=== PATIENT | male | born 1980 | race Caucasian/White ===

== ENCOUNTER 2023-08-03 13:14 | Observation (INO) | payer MEDICAID, SELFPAY ==
[2023-08-03 13:14] VITALS: BP 146/95; PULSE 92; RESP 16; TEMP 36.6; O2SAT 100; BMI 27.6
--- NOTE | 2023-08-03 13:29 | EX.ED.SAOD ---
HPI <Dr. Easton Nicole DO - Last Filed: 08/03/23 14:42> History of Present Illness Chief Complaint: Substance Abuse <MONI Fried - Last Filed: 08/03/23 15:00> Narrative Narrative: Patient presenting today requesting to detox. He reports that he has been using heroin and cocaine for about 10 years, he last used on Friday and generally uses about a gram of each per day. He snorts the substances and denies IV drug use. He detoxed once in the past several years ago. He denies any chronic medical conditions. He reports feeling chilled and has body aches, nausea, and abdominal cramping. PFSH <Dr. Easton Nicole DO - Last Filed: 08/03/23 14:42> COUNTS INCLUDE 234 BEDS AT THE [facility] Medical History (Updated 08/03/23 @ 14:[address] Easton iNcole DO) Depression Insomnia Home Medications NK 08/03/23 [History Last Taken Unknown] Allergy/AdvReac Type Severity Reaction Status Date / Time No Known Allergies Allergy Verified 08/03/23 13:16 Surgical History (Updated 08/03/23 @ 14:00 by Leticia Savage) History of appendectomy Social History Smoking Status: Current every day smoker tobacco type: cigarettes ROS <MONI Fried - Last Filed: 08/03/23 15:00> ROS ED Constitutional Constitutional ED: Reports chills; Denies fever(s) Cardiovascular Cardiovascular: Denies chest pain Respiratory/Chest Respiratory/Chest: Denies cough or dyspnea Gastrointestinal Gastrointestinal: Reports abdominal pain and nausea; Denies constipation, diarrhea or vomiting Genitourinary Genitourinary ED: Denies dysuria, hematuria or urinary urgency Musculoskeletal Musculoskeletal: Reports myalgias Integumentary Denies abscess or rash Neurologic Neurologic: Denies weakness EXAM <Dr. Easton Nicole DO - Last Filed: 08/03/23 14:42> Physical Exam Const Vital Signs: 08/03/23 13:14 08/03/23 14:04 Temperature 98 F Temperature Source Temporal Pulse Rate 92 82 Respiratory Rate 16 18 Blood Pressure 146/95 H 139/96 H Blood Pressure Mean 112 110 Pulse Ox 100 98 Oxygen Delivery Method Room Air Room Air <MONI Fried - Last Filed: 08/03/23 15:00> Physical Exam Const Vital Signs: 08/03/23 13:14 08/03/23 14:04 Temperature 98 F Temperature Source Temporal Pulse Rate 92 82 Respiratory Rate 16 18 Blood Pressure 146/95 H 139/96 H Blood Pressure Mean 112 110 Pulse Ox 100 98 Oxygen Delivery Method Room Air Room Air Positive well nourished, well developed and no apparent distress General Appearance ED: well developed HEENT Reports normocephalic and head/scalp atraumatic Mouth ED: Yes moist mucous membranes normal Eyes PERRL and EOMs intact bilaterally Neck full ROM and supple Chest Wall inspection of chest normal Resp normal respiratory effort and clear to auscultation bilaterally Cardio regular rate and regular rhythm GI soft to palpation, non-tender, non-distended and no masses Back/Spine normal ROM and normal to inspection Extremity normal to inspection and full ROM Neuro oriented x3, CN's II-XII intact bilaterally, moves all extremities, no focal motor deficits and no sensory deficits noted Sensorium / Orientation: awake and alert Psych mental status grossly normal and thought process normal Skin no rashes or lesions noted and no wounds MDM <Dr. Easton Nicole DO - Last Filed: 08/03/23 14:42> [facility] MDM Narrative Medical decision making narrative: Patient presenting requesting to detox from heroin and cocaine. Nontoxic-appearing. Detox labs will be obtained to include a CBC, CMP, urine drug screening, and alcohol level. He has been given ibuprofen and Zofran. I have personally performed a face to face assessment of the patient and have reviewed the VIDHYA Note. I performed a substantive portion of the visit including all aspects of the following. My perla findings include: History is [patient presents to the emergency department with complaint of needing detox from opiates and cocaine. Patient states that his last use was 2 days ago. Complains of chills and bodyaches as well as nausea. Has had some intermittent vomiting since yesterday. Denies diarrhea. Patient normally snorts his heroin and has been using about a gram a day for about 10 years.] Exam is [HEENT-PERRLA, EOMI. Cranial nerves II through XII grossly intact. TMs clear. Mucous membranes moist. No adenopathy. Patient appears agitated and shaky. Cardiovascular-regular rate and rhythm without murmur or ectopy Lungs-clear to auscultation, chest wall stable without crepitus or subcu emphysema Abdomen-normoactive bowel sounds, soft, nontender, no rebound or rigidity, no peritoneal signs. Extremities-intact ?4, normal range of motion, normal pulses, atraumatic] Medical Decison Making [patient had basic labs that were unremarkable. Chemistries and LFTs unremarkable. Toxicology screen positive for MDMA as well as cocaine. Alcohol was less than 3. Will discuss case with hospitalist to evaluate patient for admission for opiate detox.] Other additions or changes: [None] Lab Data Labs: Laboratory Results - last 24 hr 08/03/23 08/03/23 13:45 13:55 WBC 5.7 RBC 4.36 L Hgb 14.4 Hct 42.8 MCV 98.2 H MCH 33.0 H MCHC 33.6 RDW Std Deviation 47.1 H RDW Coeff of Abilio 13.1 Plt Count 233 MPV 8.5 Immature Gran % (Auto) 0.200 Neut % (Auto) 54.1 Lymph % (Auto) 30.6 Hendry % (Auto) 7.4 Eos % (Auto) 6.8 H Baso % (Auto) 0.9 Absolute Neuts (auto) 3.1 Absolute Lymphs (auto) 1.75 Nucleated RBC % 0 Sodium 132 L Potassium 3.9 Chloride 102 Carbon Dioxide 29.0 Anion Gap 1 L BUN 17 Creatinine 0.66 L Estim Creat Clear Calc 153.71 Est GFR (MDRD) Af Amer 169 Est GFR (MDRD) Non-Af 140 BUN/Creatinine Ratio 25.8 H Glucose 109 H Calcium 9.4 Total Bilirubin 0.30 AST 16 ALT 21 Alkaline Phosphatase 74 Total Protein 8.3 H Albumin 4.2 Globulin 4.1 Albumin/Globulin Ratio 1.0 Urine Opiates Screen NEGATIVE Urine Methadone Screen NEGATIVE Ur Barbiturates Screen NEGATIVE Ur Phencyclidine Scrn NEGATIVE Ur Amphetamines Screen NEGATIVE MDMA (Ecstasy) Screen POSITIVE H U Benzodiazepines Scrn NEGATIVE Urine Cocaine Screen POSITIVE H U Cannabinoids Screen NEGATIVE Ur Drug Screen Comment Ethyl Alcohol < 3.0 <MONI Fried - Last Filed: 08/03/23 15:00> MDM MDM Narrative Medical decision making narrative: Patient presenting requesting to detox from heroin and cocaine. Nontoxic-appearing. Detox labs will be obtained to include a CBC, CMP, urine drug screening, and alcohol level. He has been given ibuprofen and Zofran. Toxicology screen is positive for MDMA and cocaine, sodium slightly low at 132. I spoke with the hospitalist, he will be admitted in stable condition. I have personally performed a face to face assessment of the patient and have reviewed the VIDHYA Note. I performed a substantive portion of the visit including all aspects of the following. My perla findings include: History is [patient presents to the emergency department with complaint of needing detox from opiates and cocaine. Patient states that his last use was 2 days ago. Complains of chills and bodyaches as well as nausea. Has had some intermittent vomiting since yesterday. Denies diarrhea. Patient normally snorts his heroin and has been using about a gram a day for about 10 years.] Exam is [NICOLAS MCCRAYMI. Cranial nerves II through XII grossly intact. TMs clear. Mucous membranes moist. No adenopathy. Patient appears agitated and shaky. Cardiovascular-regular rate and rhythm without murmur or ectopy Lungs-clear to auscultation, chest wall stable without crepitus or subcu emphysema Abdomen-normoactive bowel sounds, soft, nontender, no rebound or rigidity, no peritoneal signs. Extremities-intact ?4, normal range of motion, normal pulses, atraumatic] Medical Decison Making [patient had basic labs that were unremarkable. Chemistries and LFTs unremarkable. Toxicology screen positive for MDMA as well as cocaine. Alcohol was less than 3. Will discuss case with hospitalist to evaluate patient for admission for opiate detox.] Other additions or changes: [None] Lab Data Attestation: I reviewed the patient's lab results. Labs: Laboratory Results - last 24 hr 08/03/23 08/03/23 13:45 13:55 WBC 5.7 RBC 4.36 L Hgb 14.4 Hct 42.8 MCV 98.2 H MCH 33.0 H MCHC 33.6 RDW Std Deviation 47.1 H RDW Coeff of Abilio 13.1 Plt Count 233 MPV 8.5 Immature Gran % (Auto) 0.200 Neut % (Auto) 54.1 Lymph % (Auto) 30.6 Hendry % (Auto) 7.4 Eos % (Auto) 6.8 H Baso % (Auto) 0.9 Absolute Neuts (auto) 3.1 Absolute Lymphs (auto) 1.75 Nucleated RBC % 0 Sodium 132 L Potassium 3.9 Chloride 102 Carbon Dioxide 29.0 Anion Gap 1 L BUN 17 Creatinine 0.66 L Estim Creat Clear Calc 153.71 Est GFR (MDRD) Af Amer 169 Est GFR (MDRD) Non-Af 140 BUN/Creatinine Ratio 25.8 H Glucose 109 H Calcium 9.4 Total Bilirubin 0.30 AST 16 ALT 21 Alkaline Phosphatase 74 Total Protein 8.3 H Albumin 4.2 Globulin 4.1 Albumin/Globulin Ratio 1.0 Urine Opiates Screen NEGATIVE Urine Methadone Screen NEGATIVE Ur Barbiturates Screen NEGATIVE Ur Phencyclidine Scrn NEGATIVE Ur Amphetamines Screen NEGATIVE MDMA (Ecstasy) Screen POSITIVE H U Benzodiazepines Scrn NEGATIVE Urine Cocaine Screen POSITIVE H U Cannabinoids Screen NEGATIVE Ur Drug Screen Comment Ethyl Alcohol < 3.0 Discharge Plan Dx/Rx/DC Orders Clinical Impression: Opiate withdrawal, Opiate abuse, continuous, Cocaine use Disposition Disposition: Acute Care Hospital [facility]
[2023-08-03] MEDS: Ibuprofen 600 MG Tablet PO (13:50)
[2023-08-03 14:01] LABS: Absolute Lymphocyte Count 1.75 X10^3/uL (0.83-4.51); Absolute Neutrophil Count 3.1 X10^3/uL (2.0-7.7); Basophil# 0.05 X10^3/uL; Basophil% 0.9 % (0-1); Eosinophil# 0.39 X10^3/uL; Eosinophils% 6.8 % (0-5); Hematocrit 42.8 % (40-54); Hemoglobin 14.4 g/dL (13.0-16.5); Lymphocyte # 1.75 X10^3/ul (0.83-4.51); Lymphocyte % 30.6 % (19-41); Mean Corp Hgb Conc 33.6 g/dL (32-36); Mean Corpuscular Volume 98.2 fL (80-94); Mean Platelet Vol. 8.5 fl (6.2-12.0); Monocyte# 0.42 X10^3/uL; Monocyte% 7.4 % (0-10); NRBC Flagged by Analyzer 0 % (0-5); Neutrophil # 3.09 X10^3/uL (2.7-7.7); Neutrophil % 54.1 % (47-70); Platelet Count 233 K/mm3 (150-450); RBC Distribution Width CV 13.1 % (11.6-14.6); RBC Distribution Width SD 47.1 fl (35.1-43.9); Red Blood Count 4.36 M/mm3 (4.6-6.2); White Blood Count 5.7 K/mm3 (4.4-11.0)
[2023-08-03 14:04] VITALS: BP 139/96; PULSE 82; RESP 18; O2SAT 98
[2023-08-03] MEDS: Ondansetron ODT 4 MG Tablet PO (14:09)
[2023-08-03 14:17] LABS: AST(SGOT) 16 U/L (15-37); Alanine Aminotransfer ALT/SGPT 21 U/L (16-61); Albumin, Serum 4.2 g/dL (3.2-5.0); Alkaline Phosphatase 74 U/L (45-117); Anion Gap 1 (5-15); BUN 17 mg/dL (7-18); BUN/Creat Ratio 25.8 RATIO (10-20); Calcium,Total 9.4 mg/dL (8.5-10.1); Chloride 102 mmol/L (98-107); Creatinine, Serum 0.66 mg/dL (0.70-1.30); EST Glomerular Filtration Rate 140 mL/min (>60); Est Glom Filt Rate - Afr Amer 169 mL/min (>60); Estimated Creatinine Clearance 153.71 ml/min; Globulin 4.1 g/dL (2.2-4.2); Glucose 109 mg/dL (74-106); Potassium 3.9 mmol/L (3.5-5.1); Protein, Total 8.3 g/dL (6.4-8.2); Sodium Level 132 mmol/L (136-145)
[2023-08-03 14:20] LABS: Amphetamine Urine VISTA NEGATIVE (<1000 ng/mL); Barbiturate Urine VISTA NEGATIVE (< 200 ng/mL); Benzodiazepine Urine VISTA NEGATIVE (< 200 ng/mL); Cocaine Urine VISTA POSITIVE (< 300 ng/mL); Ecstacy Urine VISTA POSITIVE (< 500 ng/mL); Methadone Urine VISTA NEGATIVE (< 300 ng/mL); PCP Urine VISTA NEGATIVE (< 25 ng/mL); THC Urine VISTA NEGATIVE (< 50 ng/mL); Vista UDS pH Range 4
[2023-08-03 14:20] LABS: Alcohol, Blood (Medical)-Serum < 3.0 mg/dL
--- OUTSIDE RECORDS SUMMARY | 2023-08-03 14:57 | XMS RPT_ITS | CCD ---
Author Name Unknown Address [address] [place] [address] Organization [facility] Care Team Providers Care Chair Car Attendant Name Role Phone Derrick Bloom Attending Unavailable Derrick Bloom Admitting Unavailable GEORGE GRIFFIN Admitting Unavailable GEORGE GRIFFIN Attending Unavailable NONE, NONE Primary Care Unavailable WALI STONE Consulting Unavailable GEORGE GRIFFIN Procedure Practitioner Unavailab le GEORGE GRIFFIN Consulting Unavailable NONE, NONE Consulting Unavailable Unavailable Primary Care Provider Unavailabl e No, Physician Primary Care Provider Unavailabl e NO, PHYSICIAN Primary Care Unavailable DARYL SOLIS Consulting Unavailable NATY MYLES Admitting Unavailable DEBRA OLIVIER Attending Unavailable NO, PHYSICIAN Primary Care Unavailable Required, No Pcp Unavailable Unavailable Cleve Robins Unavailable Екатерина Hathaway Unavailable Unavailable Medications Current Medications Medication Drug Class(es) Dates Sig (Normalized) Sig (Original) cephalexin 500 mg oral capsule (1 source) Cephalosporin Antibacterial Start: 08-31-2021 End: 09-06-2021 take 1 capsule by mouth twice daily cephalexin 500 mg oral capsule ; 1 cap(s) orally 2 times a day Quantity: 14 Refills: 0 Ordered: 31-Aug-2021 Екатерина Hathaway Start: 31-Aug-2021 End: 06-Sep-2021 Generic Substitution Allowed Comments: Finish all this medication unless otherwise directed by prescriber. Completed/Discontinued Medications Medication Drug Class(es) Dates Sig (Normalized) Sig (Original) acetaminophen 325 mg oral tablet (1 source) Start: 02-15-2020 End: 02-16-2020 take 1 tablet by mouth every four hours as needed 650 mg, Oral, Every 4 hours PRN, mild pain, fever 100.4 F or greater, headaches, Starting Fri02/15/20 at 0815 celecoxib 100 mg oral capsule (2 sources) Nonsteroidal Anti-inflammatory Drug Start: 01-08-2021 End: 01-22-2021 take 1 capsule by mouth twice daily at mealtime CeleBREX 100 mg oral capsule ; 1 cap(s) orally 2 times a day Quantity: 30 Refills: 0 Ordered: 08-Jan-2021 Cleve Robins Start: 08-Jan-2021 End: 22-Jan-2021 Status: Other Generic Substitution Allowed Comments: Do not take this drug if you are .Medicatio n should be taken with plenty of water.Obtain medical advice before taking any non-prescription drugs as some may affect the action of this medication.Take with food or milk. Problems Active Problems Problem Classification Problem Date Documented Date Episodic/Chronic Abdominal pain (1 source) Epigastric pain; Translations: [Epigastric pain] Episodic Essential hypertension (2 sources) Essential hypertension; Translations: [Essential hypertension] Onset: 02-15-2020 02-15-2020 Chronic Other connective tissue disease (1 source) Plantar fasciitis; Translations: [Plantar fascial fibromatosis] 01-08-2021 Episodic Other upper respiratory infections (2 sources) Acute sinusitis; Translations: [Acute sinusitis, unspecified] 08-31-2021 Episodic Poisoning by other medications and drugs (2 sources) Accidental drug overdose; Translations: [Accidental drug overdose, initial encounter] Onset: 02-15-2020 02-15-2020 Episodic Residual codes; unclassified (2 sources) Altered mental status; Translations: [Altered mental status] Onset: 02-15-2020 02-15-2020 Episodic Substance-related disorders (2 sources) Polysubstance abuse ; Translations: [Polysubstance abuse (HCC)] Onset: 02-15-2020 02-15-2020 Chronic Substance-related disorders (2 sources) Opioid dependence with withdrawal; Translations: [OPIOID DEPENDENCE WITH WITHDRAWAL] Onset: 12-15-2018 Unclassified (2 sources) BILATERAL FEET SWELLING 01-08-2021 Past or Other Problems Problem Classification Problem Date Documented Da te Episodic/Chronic Skin and subcutaneous tissue infections (1 source) Abscess of face; Translations: [Cellulitis and abscess of face] Resolved: 08-31-2021 08-31-2021 Episodic Results Test Name Value Interpretation Reference Range Facil ity Vital Signs Date Time Vital Sign Value Performing Clinician Facility 08-31-2021 19:27-0500 Body height 177.8 cm No Pcp Required [facility] 08-31-2021 19:27-0500 Body temperature 98.06 [degF] No Pcp Required [facility] 08-31-2021 19:27-0500 Diastolic blood pressure 84 mm[Hg] No Pcp Required [facility] 08-31-2021 19:27-0500 Heart rate 92 /min No Pcp Required [facility] 08-31-2021 19:27-0500 Respiratory rate 16 /min No Pcp Required [facility] 08-31-2021 19:27-0500 SaO2% (BldA) [Mass fraction] 98 % No Pcp Required [facility] 08-31-2021 19:27-0500 Systolic blood pressure 129 mm[Hg] No Pcp Required [facility] 01-08-2021 14:45-0400 Body height 180.3 cm No Pcp Required [facility] 01-08-2021 14:45-0400 Body temperature 97.88 [degF] No Pcp Required [facility] 01-08-2021 14:45-0400 Diastolic blood pressure 84 mm[Hg] No Pcp Required [facility] 01-08-2021 14:45-0400 Heart rate 74 /min No Pcp Required [facility] 01-08-2021 14:45-0400 Respiratory rate 14 /min No Pcp Required [facility] 01-08-2021 14:45-0400 SaO2% (BldA) [Mass fraction] 98 % No Pcp Required [facility] 01-08-2021 14:45-0400 Systolic blood pressure 135 mm[Hg] No Pcp Required [facility] 02-16-2020 12:30-0400 Body Temperature 98.1 [degF] [facility] 02-16-2020 12:30-0400 BP Diastolic 83 mm[Hg] [facility] 02-16-2020 12:30-0400 BP Systolic 132 mm[Hg] [facility] 02-16-2020 12:30-0400 Pulse (Heart Rate) 69 /min [facility] 02-16-2020 12:30-0400 Pulse Oximetry 96 % Ayden Buck [facility] 02-16-2020 12:30-0400 Respiratory Rate 16 /min Ayden Buck [facility] 02-15-2020 04:42-0400 Respiratory rate 0 /min Aydenantonio Buck [facility] 02-15-2020 03:21-0400 BMI (Body Mass Index) 26.72 kg/m2 Ayden Buck [facility] 02-15-2020 03:21-0400 Body weight 89.36 kg Ayden Buck [facility] 02-15-2020 03:21-0400 Height 182.9 cm Ayden Buck [facility] 05-15-2019 17:21-0500 BP Diastolic 92 mm[Hg] [facility] 05-15-2019 17:21-0500 BP Systolic 159 mm[Hg] [facility] 05-15-2019 17:21-0500 Pulse (Heart Rate) 73 /min [facility] 05-15-2019 17:21-0500 Pulse Oximetry 100 % [facility] 05-15-2019 17:21-0500 Respiratory Rate 16 /min [facility] 05-15-2019 15:11-0500 BMI (Body Mass Index) 24.41 kg/m2 [facility] 05-15-2019 15:11-0500 Body Temperature 98.71 [degF] [facility] 05-15-2019 15:11-0500 Body weight 81.65 kg [facility] 05-15-2019 15:11-0500 Height 182.9 cm [facility] Encounters Encounter Date Encounter Type Care Provider Facility Start: 08-31-2021 End: 08-31-2021 Emergency department patient visit Екатерина Hathaway [facility] 05 Start: 01-08-2021 End: 01-08-2021 Emergency department patient visit Cleve Connerdrine [facility] 04 Start: 02-18-2020 End: 02-22-2020 Patient encounter procedure PHYSICIAN NO [facility] Start: 02-15-2020 End: 02-16-2020 Patient encounter procedure PHYSICIAN NO [facility] Start: 02-15-2020 End: 02-16-2020 Emergency department patient visit Ayden Buck Work Phone: [facility] Cardiovascular Step Down Procedures Date Procedure Procedure Detail Performing Clinician Start: 02-16-2020 Basic metabolic 2000 panel - Serum or Plasma Yajaira Emery Work Phone: Start: 02-16-2020 Complete blood count with white cell differential, automated Yajaira Emery Work Phone: Start: 02-16-2020 Complete blood count with white cell differential, manual Yajaira Emery Work Phone: Start: 02-16-2020 Magnesium [Mass/volu me] in Serum or Plasma Yajaira Emery Work Phone: Start: 02-15-2020 Troponin measurement Ian Emery Work Phone: Start: 02-15-2020 Magnesium [Mass/volu me] in Serum or Plasma Yajaira Emery Work Phone: Start: 02-15-2020 Troponin measurement Ian Emery Work Phone: Start: 02-15-2020 12 lead ECG Yajaira Quintanilla Work Phone: Start: 02-15-2020 Hepatitis C antibody measurement Duy Mcgill Neshajarrod Work Phone: Start: 02-15-2020 COVID-19, MOLECULAR Babak kirk Buck Work Phone: Start: 02-15-2020 Drugs of abuse urine screening test Ayden Buck Work Phone: Start: 02-15-2020 Evaluation of arteri al blood gas studies Adyen Buck Work Phone: Start: 02-15-2020 Radiologic exam ches t single view Ayden Buck Work Phone: Start: 02-15-2020 Hepatitis B surface antibody measurement Duy Mcgill Araceli Work Phone: Start: 02-15-2020 Human immunodeficien cy virus test Duy Mcgill Araceli Work Phone: Start: 02-15-2020 LIGHT BLUE TOP Ayden Sh awn [place] Work Phone: Start: 02-15-2020 LIGHT GREEN TOP Ayden S mack [place] Work Phone: Start: 02-15-2020 RAINBOW DRAW Ayden Martinez n [place] Work Phone: Start: 02-15-2020 Acetaminophen [Mass/ volume] in Serum or Plasma Ayden Chivo Cielo Work Phone: Start: 02-15-2020 Complete blood count with white cell differential, automated Ayden Chivo [place] Work Phone: Start: 02-15-2020 Complete blood count with white cell differential, manual Ayden Chivo Cielo Work Phone: Start: 02-15-2020 Comprehensive metabo lic 2000 panel - Serum or Plasma Ayden Chivo Cielo Work Phone: Start: 02-15-2020 Ethanol [Mass/volume ] in Serum or Plasma Ayden Chivo Cielo Work Phone: Start: 02-15-2020 Troponin measurement Mi cah Chivo Cielo Work Phone: Start: 02-15-2020 OBTAIN ARTERIAL BLOO D GASES AND PERFORM Ayden Chivo Cielo Work Phone: Start: 05-15-2019 Computed tomography of abdomen and pelvis with contrast Sylvia Nguyenborne Work Phone: Start: 05-15-2019 URINALYSIS, MACRO Sylvia Fournier Arvind Work Phone: Start: 05-15-2019 Assay of lipase Sylvia Nguyenborne Work Phone: Start: 05-15-2019 CBC, EDIF, PLATELET Brandon keny Fournier Arvind Work Phone: Start: 05-15-2019 Comprehensive metabolic panel Sylvia Fournier Arvind Work Phone: Start: 12-15-2018 DTX SERVICES FOR SUB STANCE ABUSE TX NIRUOL ADNOEL Plan of Treatment Date Care Activity Detail Author Start: 02-29-2020 Influenza vaccination given Sequential Influenza Vaccine (#1) [facility] Start: 02-25-2020 End: 02-25-2020 Office Visit 02/25/2020 [facility] [address] [place] [address] [phone] [facility] Start: 02-28-2019 Influenza vaccination INFLUENZA VACCINE (#1) [facility] Start: 1999 Third diphtheria, tetanus and acellular pertussis (DTaP) vaccination TDAP (ADULT) [facility] Start: 1998 Hepatitis C antibody, confirmatory test Hepatitis C Screening [facility] Start: 1998 Tetanus vaccination TETANUS [facility] Start: 1995 HIV screening HIV Screening [facility] Start: 1993 HIV screening HIV SCREENING DISCUSSION [facility] Start: 1983 History and physical examination, annual for health maintenance Wellness Visit [facility] Start: 1980 Tetanus vaccination Tetanus: Every 10yrs [facility] Buprenorphine Ql (U) Buprenorphi ne Screen, Urine Lab Routine 02/15/2020 7:55 PM EDT [facility] Fentanyl, Urine Fentanyl, Urine Lab Routine 02/15/2020 7:56 PM EDT [facility] Troponin measurement Troponin On ce Lab Timed 02/15/2020 9:04 AM EDT [facility] Payers Date Payer Category Payer Unknown [employer] [facility] [employer] [facility] OR OTHER [facility] OR [facility] OR OTHER xxxxxxxxx 2019-Present xxxxxxxxx [id number] 2019 Medicaid [employer] [facility] MEDICAID [employer] [id number] 2019-Present [id number] 1980 Unknown [id number] 1980 Unknown [id number] 1980 Unknown [id number] 1959 Unknown [id number] Self-pay [id number] Unknown Social History Date Type Detail Facility Start: 05-15-2019 End: 02-15-2020 Tobacco smoking status NHIS Current every day smoker [facility] History of tobacco use Cigarette Smoker [facility] Start: 05-15-2019 Cigarettes smoked current (pack per day) - Reported [facility] Start: 05-15-2019 End: 02-15-2020 Alcohol intake Current drinker of alcohol (finding) [facility] Start: 11-04-2016 Alcohol Comment socially [facility] Sex Assigned At Not on file [facility] Start: 02-15-2020 Tobacco use and exposure Never used [facility] Exposure to SARS-CoV -2 (event) Not sure [facility] Tobacco smoking consumption unknown [facility] Summary Purpose Family History No Family History Records FoundNo Family History Records FoundNo Family History Records FoundNo Family History Records FoundNo Family History Records Found Advance Directives No Advanced Directives Records FoundDocuments on File Type Date Recorded Patient Senior Office Assistant Expl anation Advance Directives and Livin g Will 02/15/2020 3:24 AM Latest Code Status on File Code Status Date Activated Date Inactivated Comments Full Code 02/15/2020 8:12 AM 02/16/2020 2:59 PM Discharge Instructions * Attachments The following attachments cannot be sent through Care Everywhere. * Abdominal Pain (Peruvian) documented in this encounter* Discharge Instr - Care Coordination* Alondra Estrella RN - 02/15/2020 7:32 AM EDT [facility] Trust the experts at [facility] to meet your healthcare needs. When you make an appointment with [facility], it's the start of a long-lasting partnership that's committed to your health. We provide the very best prevention, wellness and illness care, and give you access to the advancedmedical services and expert treatment available at [facility]. Please note that the providers listed below are accepting new patients. [place]: [address], [address] [place] [address] MD Mae Lopez MD [address] [place] [address] MD Cherelle Bah, EXCHANGE OPERATOR [address] [place] [address] MD Debbi Puente, ANGEL [place], [place] [address] MD Harriett Mason, EXCHANGE OPERATOR [address], [place] [phone] Sangeeta Stallworth MD For the most up-to-date information on a care provider in your community, use the Find a Doctor tool on Getonic. * Additional Instructions* Antoine Aguilar RN - 02/15/2020 Alcohol, Drug, or Poison Ingestion: Care Instructions Your Care Instructions A person can become very sick, or , from swallowing or using alcohol, drugs, or poisons. Alcohol poisoning occurs when a person drinks a large amount of alcohol. Alcohol can stop nerve signals that control breathing. It can also stop the gag reflex that prevents choking. Alcohol poisoning is serious. It can lead to brain damage or if it's not treated right away. Drugs can be used by accident or on purpose. They can be swallowed, inhaled, injected, or absorbed through the skin. Drugs include yvyl-yfj-msyvcei medicine (such as aspirin or acetaminophen) and prescription medicine. They also include vitamins and supplements. And they include illegal drugs such as cocaine and heroin. And poisons are all around us. They include household senior sourcing manager, cosmetics, houseplants, and garden chemicals. The doctor has checked you carefully, but problems can develop later. If you notice any problems ornew symptoms, get medical treatment right away. Follow-up care is a perla part of your treatment and safety. Be sure to make and go to all appointments, and call your doctor if you are having problems. It's also a good idea to know your test resultsand keep a list of the medicines you take. How can you care for yourself at home? Alcohol problems Talk to your doctor or counselor about programs that can help you stop using alcohol. Plan ways to avoid being tempted to drink. ? Get rid of all alcohol in your home. ? Avoid places where you tend to drink. ? Stay away from places or events that offer alcohol. ? Stay away from people who drink a lot. Drug problems Talk to your doctor about programs that can help you stop using drugs. Get rid of any drugs you might be tempted to misuse. Learn how to say no when other people use drugs. Don't spend time with people who use drugs. Poison prevention Keep products in the containers they came in. Keep them with the original labels. Be careful when you use cleaning products, paints, solvents, and pesticides. Read labels before use. Use a fan to move strong odors and fumes out of your home. Do not mix cleaning products. Try to use nontoxic senior sourcing manager. These include vinegar, lemon juice, andbaking soda. When should you call for help? Poison control centers, hospitals, or your doctor can give immediate advice in the case of a poisoning. The [facility] National Poison Control Hotline phone number is . Have the poison container with you so you can give complete information to the poison control center, such as what the poison or substance is, how much was taken and when. Do not try to make the person vomit. [id number] anytime you think you may need emergency care. For example, call if you or someone else: Has used or currently uses alcohol or drugs and is very confused or can't stay awake. Has passed out (lost consciousness). Has severe trouble breathing. Is having a seizure. Call your doctor now or seek immediate medical care if you or someone else: Has new symptoms, or is not acting normally. Watch closely for changes in your health, and be sure to contact your doctor if: You do not get better as expected. You need help with drug or alcohol problems. You have problems with depression or other mental health issues. Where can you learn more? Log into your personal health record on https://Neomendhart.LendUp and enter A385 in the Education box to learn more about Alcohol, Drug, or Poison Ingestion: Care Instructions. Current as of: December 23, 2018 Content Version: 12. [employer]. Care instructions adapted under license by your healthcare professional. If you have questions about a medical condition or this instruction, always ask your healthcare professional. [employer] disclaims any warranty or liability for your use of this information. * Attachments The following attachments cannot be sent through Care Everywhere. * Heroin Use and Withdrawal: General Info (Peruvian) documented in this encounter Assessments Diagnosis Epigastric pain- Primary Abdominal pain, epigastric Diagnosis Accidental drug overdose, initial encounter- Primary Altered mental status Polysubstance abuse (HCC) Other, mixed, or unspecified nondependent drug abuse, unspecified Essential hypertension Unspecified essential hypertension Hospital Course * Debra Olivier MD - 02/16/2020 11:39 AM EDT HOSPITALIST DISCHARGE SUMMARY Patient: Ron Thompson Account: [id number] Admitted: 02/15/2020 Discharge Date/Time: 02/16/2020 Clinical Summary FINAL DIAGNOSIS: Active Problems: Altered mental status Accidental drug overdose Polysubstance abuse (HCC) Essential hypertension REASON FOR HOSPITALIZATION AND ADMITTING DIAGNOSIS: Drug Overdose Accidental drug overdose, initial encounter [T50.939L] HOSPITAL COURSE: Ron Thompson is a 39 y.o. male presenting from home. The patient has a history of polysubstance abuse, hypertension. The patient presented to the emergency room with chief complaint of heroin overdose he was found at home unresponsive in the kitchen by family members. He was given Narcan in route to the hospital and once again in the emergency room. Patient does admit to snorting heroin. He denies intentional overdose. He states h he is scared currently. He denies headache,, visual changes, syncope or or dizziness. He denies abdominal pain however he does complain of abdominal pain. However no nausea vomiting or diarrhea. He denies any hematuria, hematochezia, hematemesis. He denies difficu lty with ambulation pain or numbness in his extremities. Patient doing well denies any chest pain or shortness of breath complains of mild headache. Patientwent into mild withdrawal symptoms and received clonidine as needed doing fine today we will discharge patient home to follow-up with Dr. Charles as an outpatient CONDITION AT DISCHARGE: Stable Physical Examination: Blood pressure 132/87, pulse 75, temperature 98 F (36.7 C), temperature source Oral, resp. rate 16,height 6', weight 89.4 kg (197 lb), SpO2 99 %. General appearance: alert, cooperative, in no acute distress. Head/Neck: Head- normocephalic. Neck- supple, non-tender, without lymphadenopathy Eyes: No Scleral icterus or pallor; EOMI ENT: Trachea midline. Cardiovascular: regular rate and rhythm; normal S1, S2; no murmurs, rubs, clicks or gallops; No/+ peripheral edema. Respiratory: lungs clear to auscultation; without wheezes, rales or rhonchi. Abdomen: soft, non tender, non-distended; positive bowel sounds. Neurological: alert, oriented, normal speech; no focal findings or movement disorder noted. Musculoskeletal: no significant deformity noted. Skin: normal coloration, texture and turgor; no lesions or eruptions. Procedures: No orders of the defined types were placed in this encounter. Consults: Procedures Hospitalize Patient To : Inpatient consult to Addiction Medicine Inpatient consult to Care Management Inpatient consult to Care Management Other Tests: No orders of the defined types were placed in this encounter. LAST LABS: Results from last 7 days Lab Units 02/16/20 0619 SODIUM mmol/L 140 POTASSIUM mmol/L 4.1 CHLORIDE mmol/L 112* BUN mg/dL 13 CREATININE mg/dL 0.62 GLUCOSE mg/dL 87 CALCIUM mg/dL 8.4 Results from last 7 days Lab Units 02/15/20 0434 ALK PHOS U/L 75 BILIRUBIN TOTAL mg/dL 0.2 TOTAL PROTEIN g/dL 8.1* ALTR U/L 32 AST U/L 32 Results from last 7 days Lab Units 02/16/20 0619 WBC K/mcL 5.86 HGB g/dL 12.7* HCT % 38.8* PLT K/mcL 235 Allergies: Patient has no known allergies. Discharge Diet: Diet Regular; Regular Disposition: Discharge Medications Medication List You have not been prescribed any medications. Physician(s) Family: Physician No, Phone: None, Address: [facility] Follow Up: Duy Charles MD [address] [place], [place] [address] Patient instructions, including activity, were given to the patient/family at discharge. Please seethe After Visit Summary in the medical record for details. Time spent on discharge:45 mins Completed by: Debra Olivier on 02/16/20, 11:39 AM documented in this encounter History of Present Illness * Dayami Awan - 02/16/2020 11:07 AM EDT Spoke with this patient regarding a PCP. He does not currently have one and wishes to just take thelist home with him and establish himself. Dayami Awan documented in this encounter Additional Source Comments (unrecognized sect ion and content) No Status Records FoundNo Status Records FoundNo Status Records FoundNo Status Records FoundNo Status Records Found INFORMATION SOURCE (unrecogn ized section and content) DATE CREATED AUTHOR AUTHOR'S ORGANIZ ATION 02/24/2019 [facility] DATE CREATED AUTHOR AUTHOR'S ORGANIZ ATION 05/18/2019 [facility] DATE CREATED AUTHOR AUTHOR'S ORGANIZ ATION 02/22/2020 [facility] DATE CREATED AUTHOR AUTHOR'S ORGANIZ ATION 09/05/2021 [facility] Reason for Visit (unrecogniz ed section and content) Reason Comments Drug Overdose Status Reason Specialty Diagnoses / Procedures Referre d By Contact Referred To Contact Diagnoses Accidental drug overdose, initial encounter Yajaira Emery CNP - 02/15/2020 10:00 AM EDT H&P Notes (unrecognized sect ion and content) [facility] Medicine Inpatient H&P 02/15/2020 Yajaira Emery CNP [facility] Patient: Ron Thompson Date of : 1980 (39 y.o.) PCP: Physician No Assessment Ron Thompson 39 y.o. male with history of Active Problems: Altered mental status Accidental drug overdose Polysubstance abuse (HCC) Essential hypertension Plan: Altered mental status Resolved: Likely secondary to accidental drug overdose Accidental drug overdose in the setting of polysubstance abuse Narcan PRN, neurochecks every 4 hours IV hydration normal saline at 100 mL an hour Prone screen, fentanyl screen ordered await those results. Hypertension; Patient does not know what medication he used to take he has not currently been taking his blood pressure medication will monitor blood pressure and add medication as indicated SUBJECTIVE: Chief Complaint: Confusion History of Presenting Illness: Ron Thompson is a 39 y.o. male presenting from home. The patient has a history of polysubstance abuse, hypertension. The patient presented to the emergency room with chief complaint of heroin overdose he was found at home unresponsive in the kitchen by family members. He was given Narcan in route to the hospital and once again in the emergency room. Patient does admit to snorting heroin. He denies intentional overdose. He states h he is scared currently. He denies headache,, visual changes, syncope or or dizziness. He denies abdominal pain however he does complain of abdominal pain. However no nausea vomiting or diarrhea. He denies any hematuria, hematochezia, hematemesis. He denies difficulty with ambulation pain or numbness in his extremities. Review of Systems: 10 systems reviewed and negative other than noted in HPI History: History reviewed. No pertinent past medical history. History reviewed. No pertinent surgical history. History reviewed. No pertinent family history. Social History Tobacco Use Smoking Status Current Every Day Smoker Smokeless Tobacco Never Used Social History Substance and Sexual Activity Alcohol Use Yes Family and Social History reviewed and non-pertinent to this visit Allergies: Patient has no known allergies. Home Medications: No current outpatient medications on file as of 02/15/2020. OBJECTIVE: Physical Examination: BP 114/73 Pulse 88 Temp 97.8 F (36.6 C) (Oral) Resp 14 Ht 6' Wt 89.4 kg (197 lb) SpO2 99% BMI 26.72 kg/m General Appearance: Alert, well appearing, and in no acute distress. HEENT: Head - Normocephalic, atraumatic. Eyes - KETURAH bilaterally and EOMI. Ears - normal external appearance, hearing intact. Nose - normal, no erythema. Throat - mucous membranes moist, pharynx without lesions. Neck: Supple, trachea midline. Cardiovascular: S1, S2 normal. No murmurs, rubs, clicks or gallops appreciated. No pedal edema. Respiratory: Lungs bibasilar rhonchi Abdomen: Soft, non-tender, normal bowel sounds, non-distended, no masses or organomegaly appreciated. Neurological: Grossly normal motor and sensory exam. No focal deficits. Musculoskeletal: No joint tenderness, deformity or swelling. Skin: Normal coloration and turgor. No rashes. Psych: Alert, oriented x 3. Normal mood and affect. Laboratory and Additional Data Reviewed: Results/Medications Reviewed 02/15/20 10:02 AM: Results from last 7 days Lab Units 02/15/20 0442 02/15/20 0434 SODIUM mmol/L 144 142 POTASSIUM mmol/L 3.4* 3.5 CHLORIDE mmol/L 109* 110* BUN mg/dL -- 20 CREATININE mg/dL -- 1.22 GLUCOSE mg/dL 105* 86 CALCIUM mg/dL -- 9.6 Results from last 7 days Lab Units 02/15/20 0442 02/15/20 0434 WBC K/mcL -- 10.90 HGB g/dL -- 13.7 HEMOGLOBIN BG g/dL 13.5 -- HEMATOCRIT, CALCULATED % 41.5 -- HCT % -- 41.7 PLT K/mcL -- 275 Results from last 7 days Lab Units 02/15/20433 TROPONIN I ng/L 42 Results from last 7 days Lab Units 02/15/20 0434 ALK PHOS U/L 75 BILIRUBIN TOTAL mg/dL 0.2 TOTAL PROTEIN g/dL 8.1* ALTR U/L 32 AST U/L 32 CULTURES: Reviewed 10:02 AM IMAGING: Reviewed 10:02 AM documented in this encounter Amanda Borja LISW - 02/15/2020 11:18 AM EDDuy Forman MD - 02/15/2020 9:13 AM EDT Consult Notes (unrecognized section and content) Associated Order(s): IP CONSULT TO CARE MANAGEMENT; IP CONSULT TO CARE MANAGEMENT SIMPLE DISCHARGE Date: 02/15/2020 Time: 11:18 AM Patient Name: Ron Thompson Date of : 1980 Sex: Male Discharge Planning Living Arrangements: Spouse/significant other, Family members Caregiver Identified: No Support Systems: Spouse/significant other, Family members Assistance Needed: none Type of Residence: Private residence Prior to Admission Home Care Services: No Referral received. Spoke with Dr. Olivier and later Dr. Charles. Dr. Charles was interested in the patient getting into [facility] today by [id number]. Met with the patient and he indicated that he has an appointment on the at 8 am. The patient insists he can not go to [facility] today and he was not willing to sign a release for this worker to call them. Called and updated Dr. Charles to above. Updated Dr. Olivier to above. [facility] CONSULT NOTE Patient Name: Ron Thompson Admit Date: MR #: [id number] : 1980 Physicians: Physician No (Family); No ref. provider found (referring) Hospitalist group Active Problems: Altered mental status Accidental drug overdose Polysubstance abuse (HCC) Essential hypertension Assessment and Plan: 1. Opiate Addiction -patient states that he mainly has been using heroin since 2 to 3 weeks after he got out of a detox at [place]. He states that he did not have any groups or follow-up or medications and has no family physician. He is interested in going into detox inpatient as he feels that the only way that he can get help and be able to be support for his 16-year-old daughter and his mother. He states he is only done snorting. We will have the social media developer Amanda do an intake with [facility] ([phone]) for the Withdrawal Management Unit ([phone]) as a goal If inpatient does not work he may need medications for withdrawal and could possibly be with discharge going directly for supportive med care 2. Cocaine and Benzodiazepine use -patient states that he did not knowingly use cocaine or benzodiazepines and that it must been mixed with the heroin that he thought. He states that he is the last to what he had at home before his had to call 911 Assessment Detail: The total time spent for this visit was 40 TO 45 minutes. Greater than 50% of the time was spent in counseling and coordination of care. Reason for Consult: Medical management of opioid use disorder. History of Present Illness: Ron Thompson is a 39 y.o. y/o male presenting from home with c/o OD Chief Complaint Patient presents with Drug Overdose Patient presented with emergency department earlier this morning. His 16-year-old daughter works at a [employer] shop and had come home and he was going to make breakfast for her. He states he must have done hit very quickly and next thing he knew he was at the hospital. He did get Narcan twice prehospital and then also had an additional dose in the emergency department. His urine screen was positive for opiates and benzos and cocaine of which he states he does not use the others on a regular basis. He states he has not done anything IV other than one time experimenting several years ago. He does currently have custody of his child who is with his mother right now. He states he does feel like he needs to get into inpatient detox as he cannot go more than 8 or 12 hours before he has to use again. He states that there is nothing left at home for him take that he usually does not use at home. It did take a while for him to be waking up which is why he was admitted for observation. He had a previous inpatient detox in November 2018 at [place] but never had any follow-up after that and does not have a family physician History reviewed. No pertinent past medical history. History reviewed. No pertinent surgical history. History reviewed. No pertinent family history. Social History Socioeconomic History Marital status: Spouse name: Not on file Number of children: Not on file Years of education: Not on file Highest education level: Not on file Occupational History Not on file Social Needs Financial resource strain: Not on file Food insecurity Worry: Not on file Inability: Not on file Transportation needs Medical: Not on file Non-medical: Not on file Tobacco Use Smoking status: Current Every Day Smoker Smokeless tobacco: Never Used Substance and Sexual Activity Alcohol use: Yes Drug use: Yes Types: Opiates Comment: HEROIN SNORTS Sexual activity: Not on file Lifestyle Physical activity Days per week: Not on file Minutes per session: Not on file Stress: Not on file Relationships Social connections Talks on phone: Not on file Gets together: Not on file Attends religion service: Not on file Active member of club or organization: Not on file Attends meetings of clubs or organizations: Not on file Relationship status: Not on file Other Topics Concern Not on file Social History Narrative Not on file AOD History: Opioids nasal 3 daily last used 2AM Patient had [place] inpatient with 3 days of detox in 11/2018 but no follow-up Psychiatric History: none No current outpatient medications on file prior to encounter. No Known Allergies Review of Systems All other systems reviewed and are negative. Patient Vitals for the past 24 hrs: BP Temp Temp src Pulse Resp SpO2 Height Weight 02/15/20 0805 114/73 97.8 F (36.6 C) Oral 88 14 99 % 02/15/20 0700 105/63 02/15/20 0645 107/66 02/15/20 0600 (!) 104/59 Oral 16 02/15/20 0545 114/67 93 (!) 19 97 % 02/15/20 0500 (!) 145/77 (!) 108 (!) 22 02/15/20 0455 (!) 151/91 (!) 108 (!) 25 99 % 02/15/20 0445 (!) 154/104 (!) 82 % 02/15/20 0402 (!) 161/93 91 99 % 02/15/20 0344 (!) 142/89 88 17 100 % 02/15/20 0321 (!) 140/92 97.8 F (36.6 C) Oral (!) 101 (!) 20 99 % 6' 89.4 kg (197 lb) Physical Exam Vitals signs and nursing note reviewed. Constitutional: Comments: Patient was resting but able to be easily aroused to verbal and is tearful HENT: Nose: Nose normal. Comments: No residue Mouth/Throat: Mouth: Mucous membranes are moist. Eyes: General: No scleral icterus. Pupils: Pupils are equal, round, and reactive to light. Cardiovascular: Rate and Rhythm: Normal rate. Pulmonary: Effort: Pulmonary effort is normal. Musculoskeletal: Normal range of motion. Skin: General: Skin is warm and dry. Comments: Good veins with no apparent acute margin Neurological: General: No focal deficit present. Psychiatric: Comments: Tearful. Poor eye contact. Down on himself Allergy Information: I have reviewed the patient's allergies. Patient has no known allergies. Home Medications: No current outpatient medications on file as of 02/15/2020. Laboratory & Radiographic Imaging (if done): Recent Results (from the past 24 hour(s)) Comprehensive Metabolic Panel Collection Time: 02/15/20 4:34 AM Result Value Ref Range Sodium 142 135 - 145 mmol/L Potassium 3.5 3.5 - 5.1 mmol/L Chloride 110 (H) 98 - 108 mmol/L Bicarbonate 25 21 - 32 mmol/L Anion Gap 11 10 - 20 mmol/L Glucose 86 65 - 99 mg/dL BUN 20 8 - 25 mg/dL Creatinine 1.22 0.50 - 1.30 mg/dL eGFR 74 >=60 mL/min/1.73 m2 BUN/Creatinine Ratio 16.4 10.0 - 20.0 Total Protein 8.1 (H) 6.0 - 8.0 g/dL Albumin 3.7 3.2 - 5.2 g/dL Calcium 9.6 8.4 - 10.2 mg/dL Alkaline Phosphatase 75 40 - 140 U/L AST 32 0 - 45 U/L Total Bilirubin 0.2 0.0 - 1.3 mg/dL ALT 32 14 - 65 U/L Troponin Collection Time: 02/15/20 4:34 AM Result Value Ref Range Troponin I 42 <=45 ng/L Troponin I Interpretation Normal Alcohol, Medical Collection Time: 02/15/20 4:34 AM Result Value Ref Range Alcohol (Medical) <10.00 <10.00 mg/dL Acetaminophen Level Collection Time: 02/15/20 4:34 AM Result Value Ref Range Acetaminophen <2.0 (L) 10.0 - 30.0 mcg/mL CBC Auto Differential Collection Time: 02/15/20 4:34 AM Result Value Ref Range WBC 10.90 4.50 - 11.00 K/mcL RBC 4.37 (L) 4.50 - 5.90 M/mcL Hemoglobin 13.7 13.5 - 17.5 g/dL Hematocrit 41.7 41.0 - 53.0 % MCV 95.4 80.0 - 100.0 fL MCH 31.4 26.0 - 34.0 pg MCHC 32.9 31.0 - 37.0 g/dL Platelets 275 150 - 400 K/mcL RDW - CV 13.8 11.6 - 14.8 % MPV 8.9 (L) 9.4 - 12.4 fL Neutrophils 73.1 % Lymphocytes 13.3 % Monocytes 11.7 % Eosinophils 1.1 % Basophils 0.4 % IG Percent 0.40 % Neutrophils Abs 7.98 (H) 1.70 - 7.00 K/mcL Lymphocytes Abs 1.45 0.90 - 4.00 K/mcL Monocytes Abs 1.27 (H) 0.30 - 0.90 K/mcL Eosinophils Abs 0.12 0.00 - 0.50 K/mcL Basophils Abs 0.04 0.00 - 0.30 K/mcL IG Absolute 0.04 0.00 - 0.30 K/mcL Nucleated RBC 0.0 % Nucleated RBC Abs 0.00 0.00 - 0.00 K/mcL Gold Top Collection Time: 02/15/20 4:35 AM Result Value Ref Range Extra Tube Hold for add-ons. Light Blue Top Collection Time: 02/15/20 4:35 AM Result Value Ref Range Extra Tube Hold for add-ons. POC Arterial Blood Gas Panel-Pulm Collection Time: 02/15/20 4:42 AM Result Value Ref Range pH, Arterial 7.42 7.35 - 7.45 pCO2, Arterial 38.8 35.0 - 45.0 mm Hg pO2, Arterial 90 80 - 100 mm Hg Base Excess, Arterial 0.7 -2.0 - 2.0 HCO3, Arterial 25.1 22.0 - 26.0 mmol/L Ionized Calcium 5.0 4.5 - 5.3 mg/dL Lactic Acid 1.0 0.6 - 2.0 mmol/L O2 Sat, Arterial 97.7 92.0 - 99.0 % O2 Hb 93.5 (L) 94.0 - 98.0 % Hemoglobin, Blood Gas 13.5 13.5 - 18.0 g/dL Hematocrit, Calculated 41.5 41.0 - 53.0 % Carboxyhemoglobin 3.2 (H) <=1.5 % of total Hb Methemoglobin 1.0 0.0 - 2.0 % FIO2 21 Specimen Source Radial, right IMV 0 TIDAL VOLUME 0 RESP RATE 0 Sodium 144 135 - 145 mmol/L Potassium 3.4 (L) 3.5 - 5.1 mmol/L Glucose 105 (H) 65 - 99 mg/dL Chloride 109 (H) 98 - 108 mmol/L [id number] 8.4 mm Hg Urine Drug Screen Collection Time: 02/15/20 4:44 AM Result Value Ref Range Amphetamine Screen, Urine None Detected None Detected Barbiturate Screen, Urine None Detected None Detected Benzodiazepine Screen, Urine Presumptive Positive (A) None Detected Cannabinoid Screen, Urine None Detected None Detected Cocaine, Screen Urine Presumptive Positive (A) None Detected Methadone Screen, Urine None Detected None Detected Opiate Screen, Urine Presumptive Positive (A) None Detected Oxycodone Screen, Urine None Detected None Detected COVID-19, Molecular Collection Time: 02/15/20 4:44 AM Specimen: Nasopharyngeal; Swab Result Value Ref Range SARS-CoV-2 Not Detected Not Detected XR Chest 1 View Preliminary Result No acute cardiopulmonary disease. [employer] Workstation ID: [id number] documented in this encounter Debbi Marcus PSA - 02/15/2020 7:48 AM Lisa Serrato RN - 02/15/2020 7:34 AM Lisa Serrato RN - 02/15/2020 7:10 AM Lisa Serrato RN - 02/15/2020 5:56 AM EDT ED Notes (unrecognized secti on and content) THIS PSA IS TRANSFERRING PT TO ROOM 3036 REPORT CALLED TO FLOOR TO CHARGE SINCE RN'S ARE STILL IN REPORT SHE DENIES QUESTIONS PT ON RIGHT SIDE RESTING QUIETLY RESP EVEN AND UNLABORED PT HAS BED ASSIGNED AND REPORT TO BE CALLED TO FLOOR WHEN THERE SHIFT REPORT IS COMPLETE PT ON RIGHT SIDE RESTING QUIETLY WITH EYES CLOSED RESP SLIGHTLY IRREGULAR YET BUT BETTER THAN PRIOR SINCE HES BEEN SLEEPING THIS RN CONTINUES TO MONITOR END TIDAL 29 AND PT DOES HAVE A VERY STUFFY NOSE WHEN THIS RN OBTAINED COVID EARLIER CALL LIGHT IN REACH PT NOW HAS OXYGEN 2 LITERS/NC SINCE END TIDAL WAS READY 17 TO 22 AND STILL WITH IRREGULAR BREATHING OXYGEN 98% AFTER A COUPLE MINUTES ON OXYGEN SATS INCREASED ONLY TO 99% BUT END TIDAL IS NOW 36 HE IS STILL RESTLESS ON COT BUT IS STARTING TO HAVE LESS MOVEMENT WHILE NOT BEING DISTURBED OR TALKED TO WILL CONTINUE TO MONITOR PT NEEDS PT CONTINUES WITH IRREGULAR BREATHING PATTERN PT HOLDS HIS BREATH IS VERY RESTLESS IN BED AND THEN RETURNS TO REGULAR OXYGEN IS STILL 96 TO 98% AND END TIDAL IS 34 AND RESP 25 ABGS BEING DONE AT [facility] Special isolation precautions are in place with signage outside this patient's room. This healthcare manager performs hand hygiene and enters the patient room wearing: ? gloves ? an appropriately fitting (N-95, PAPR, Aura) mask ? face shield ? protective gown to provide care. See documentation for the care provided. XRAY AT [facility] PT REMOVED ALL TUBING AGAIN THIS TIME INCLUDING IV THIS TIME AND WILL GET NEW SITE WITH LABS AND ABGS END TIDAL 36 AND OXYGEN AT 99% WITH RESP 16 WHEN HE LAYS STILL AND DOES NOT REMOVE MONITORING TUBING HE CONTINUES TO HOLD HIS BREATH AND TIMES AND THEN BREATHES IRREGULARLY THIS RN HAS TO BE AT [facility] SINCE PT IS PULLING AT LINES AND TAKING OFF GOWN PT IS DEEP BREATHING AND BLUBBERING WHEN TRYING TO SPEAK HE DOES FINALLY GET OUT IN WORDS AFTER A FEW TIMES OF ASKING WHAT HE IS SAYING END TIDAL NOW 38 AFTER NARCAN AND RESP 17 BP UPDATED AND PT NEEDS TO BE TOLD AGAIN AND AGAIN TO STOP TAKING OFF BP CUFF AND END TIDAL TUBING SR UP ON COT B/L END TIDAL IS 38 ON RA AND PT SNORING PER DR BUCK GIVE 4 MG IV NARCAN AND OFFICER IN ROOM GIVING SUMMONS AND TALKING TO PT ABOUT HIS DTR AND MOTHER WATCHING HIM IN THE HOME PT WAS FOUND IN KITCHEN BY FAMILY AND EMS WAS CALLED HE WAS GIVEN 4 MG NASAL NARCAN PT IS NOW ALERT AND ORIENTED STATES HE HAS OVERDOSED BEFORE AND DENIES BEING HOMICIDAL OR SUICIDAL PT HAS TO BE ASKED NUMEROUS TIMES THE SAME THING BUT EVENTUALLY HE DOES ANSWER [facility] ED Physician Note: NAME: Ron Thompson 39 y.o. CSN: [id number] PCP: Physician No History: Chief Complaint: Heroin overdose HPI: The history was obtained from the patient and EMS. He is a 39 y.o. male who presents with a chief complaint of heroin overdose. Patient was in the home environment, found unresponsive, in the kitchen by family members. EMS was dispatched. 4 mg of Narcan was administered intranasally. Patient was brought to the emergency department for further evaluation and treatment. Patient admitted to snorting heroin. Patient denies desire to harm self or others. PMHx: History reviewed. No pertinent past medical history. PMSx: History reviewed. No pertinent surgical history. FAM. Hx: History reviewed. No pertinent family history. SOC. Hx: Social History Socioeconomic History Marital status: Spouse name: Not on file Number of children: Not on file Years of education: Not on file Highest education level: Not on file Occupational History Not on file Social Needs Financial resource strain: Not on file Food insecurity Worry: Not on file Inability: Not on file Transportation needs Medical: Not on file Non-medical: Not on file Tobacco Use Smoking status: Current Every Day Smoker Smokeless tobacco: Never Used Substance and Sexual Activity Alcohol use: Yes Drug use: Yes Types: Opiates Comment: HEROIN SNORTS Sexual activity: Not on file Lifestyle Physical activity Days per week: Not on file Minutes per session: Not on file Stress: Not on file Relationships Social connections Talks on phone: Not on file Gets together: Not on file Attends religion service: Not on file Active member of club or organization: Not on file Attends meetings of clubs or organizations: Not on file Relationship status: Not on file Other Topics Concern Not on file Social History Narrative Not on file MEDs: No current outpatient medications on file prior to encounter. ALL: No Known Allergies ROS: Review of Systems General: No fevers or chills. Eyes: No photophobia or blurred vision. ENT: No sore throat or earache. Cardiovascular: No chest pain or palpitations. Respiratory: No shortness of breath or cough. Gastrointestinal: No vomiting or diarrhea. Genitourinary: No dysuria or hematuria. Musculoskeletal: No arthralgias or myalgias. Neurologic: No headache or weakness. Skin: No rashes or bruises. Psychiatry: No anxiety or depression. All other systems were reviewed and were negative. Physical Exam: General: Patient is shivering. HEENT: Normocephalic, atraumatic, pupils equal round react to light and accommodate. No scleral icterus. No tonsillar erythema or exudates. Moist mucous membranes. Neck: Supple, trachea midline. Cardiovascular: Regular rate and rhythm, no murmurs, no gallops, no rubs. Chest: Clear. No wheezes, no rales, no rhonchi. Extremities: No lower extremity edema. Skin: Warm and dry Neurologic: Patient is alert, awake, and oriented. Psychiatric: Patient is agitated. Patient Vitals for the past 24 hrs: BP Temp Temp src Pulse Resp SpO2 Height Weight 02/15/20 0600 (!) 104/59 Oral 16 02/15/20 0545 114/67 93 (!) 19 97 % 02/15/20 0500 (!) 145/77 (!) 108 (!) 22 02/15/20 0455 (!) 151/91 (!) 108 (!) 25 99 % 02/15/20 0445 (!) 154/104 (!) 82 % 02/15/20 0402 (!) 161/93 91 99 % 02/15/20 0344 (!) 142/89 88 17 100 % 02/15/20 0321 (!) 140/92 97.8 F (36.6 C) Oral (!) 101 (!) 20 99 % 6' 89.4 kg (197 lb) Laboratory & Radiological Imaging (if done): Labs Reviewed COMPREHENSIVE METABOLIC PANEL - Abnormal; Notable for the following components: Result Value Chloride 110 (*) Total Protein 8.1 (*) All other components within normal limits Narrative: The eGFR should be used for monitoring renal function only and not for medication dosing. ACETAMINOPHEN LEVEL - Abnormal; Notable for the following components: Acetaminophen <2.0 (*) All other components within normal limits DRUGS OF ABUSE SCREEN, URINE - Abnormal; Notable for the following components: Benzodiazepine Screen, Urine Presumptive Positive (*) Cocaine, Screen Urine Presumptive Positive (*) Opiate Screen, Urine Presumptive Positive (*) All other components within normal limits Narrative: Screen results should be used for treatment purposes only. Specimen will be kept for 1 week, if the sample is adequate. Confirmation testing can be initiated by calling the lab within 1 week. POC ARTERIAL BLOOD GAS PANEL-PULM - RALS - Abnormal; Notable for the following components: O2 Hb 93.5 (*) Carboxyhemoglobin 3.2 (*) Potassium 3.4 (*) Glucose 105 (*) Chloride 109 (*) All other components within normal limits CBC WITH AUTO DIFFERENTIAL - Abnormal; Notable for the following components: RBC 4.37 (*) MPV 8.9 (*) Neutrophils Abs 7.98 (*) Monocytes Abs 1.27 (*) All other components within normal limits COVID-19, MOLECULAR - Normal ALCOHOL, MEDICAL - Normal CBC AND DIFFERENTIAL Narrative: The following orders were created for panel order CBC w/ Diff. Procedure Abnormality Status --------- ------ CBC Auto Differential[[id number]] Abnormal Final result Please view results for these tests on the individual orders. TROPONIN XR Chest 1 View Preliminary Result No acute cardiopulmonary disease. [employer] Workstation ID: [id number] ED Course / Medical Decision Making: MDM Clinical Impression: 1. Accidental drug overdose, initial encounter Disposition: Patient is being hospitalize to observation unit (CDU) Ayden Buck M.D. [facility] Emergency Department Ayden Buck MD 02/15/20 0654 documented in this encounter Quick Note - Marisol Rivero RN - 02/15/2020 1:09 PM EDTPlan of Care - Marisol Rivero RN - 02/15/2020 11:38 AM EDT Miscellaneous Notes (unrecog nized section and content) CIWA discontinued per Dr. Garcia due to opiate withdrawal, not alcohol withdrawal. Clonidine ordered POC initiated documented in this encounter <item><item> Privacy Markings (unrecogniz ed section and content) Section Author: Sandrita Muñoz PROHIBITION ON REDISCLOSURE OF CONFIDENTIAL INFORMATION This notice accompanies a disclosure of information concerning a client made to you with the consent of such client. Section Author: Sandrita Muñoz PROHIBITION ON REDISCLOSURE OF CONFIDENTIAL INFORMATION This notice accompanies a disclosure of information concerning a client made to you with the consent of such client. FOR RECORDS PERTAINING TO PATIENTS WHO ARE OR HAVE BEEN ENROLLED IN A CHEMICAL DEPENDENCY/SUBSTANCEABUSE PROGRAM, SOME INFORMATION MAY BE OMITTED. This clinical summary was aggregated from multiple sources. Caution should be exercised in using it in the provision of clinical care. This summary normalizes information from multiple sources, and as a consequence, information in this document may materially change the coding, format and clinical context of patient data. In addition, data may be omitted in some cases. CLINICAL DECISIONS SHOULD BE BASED ON THE PRIMARY CLINICAL RECORDS. [employer]. provides no warranty or guarantee of the accuracy or completeness of information in this document.
--- NOTE | 2023-08-03 15:12 | HP.PCM.HOS_ITS ---
HPI - General General Date of Admission: 08/03/23 Date of Service: 08/03/23 Chief Complaint: De-addiction HPI Narrative J CARLOS THOMPSON, is a 43 M who presents for inpatient admission regarding the addiction from cocaine and opioid use. He has been smoking cocaine for the last 9 years along with heroin inhalation. No IV drug use. His last usage was on Friday. He is asymptomatic at this time but has some tremulousness. He is feeling anxious. Wants to quit his ongoing drug use and is seeking inpatient admission. At the time of presentation in the ED his blood pressure was normal, on hemoglobin 14.4 WBC 5.7 platelet count 233 sodium 132 creatinine 0.6 liver enzymes are normal. [facility] Medical History (Updated 08/03/23 @ 14:[address] Easton Nicole DO) Depression Insomnia Home Medications NK 08/03/23 [History Last Taken Unknown] Allergy/AdvReac Type Severity Reaction Status Date / Time No Known Allergies Allergy Verified 08/03/23 13:16 Surgical History (Updated 08/03/23 @ 14:00 by Leticia Savage) History of appendectomy Social History Smoking Status: Current every day smoker tobacco type: cigarettes ROS Constitutional Constitutional: Reports anorexia and weakness Eyes Eyes: Denies blurry vision, change in eye color, change in vision, discharge from eye(s), double vision, erythema, eye pain, loss of vision or other ENT HEENT: Denies abnormal hearing, dysphagia, ear pain, epistaxis, headache(s), hearing loss, nasal congestion, nasal discharge, post nasal drip, sinus pressure, sore throat or other Cardiovascular Cardiovascular: Denies chest pain, claudication, dyspnea on exertion, edema, lightheadedness, orthopnea, palpitations, paroxysmal nocturnal dyspnea, rapid heart rate, syncope or other Respiratory/Chest Respiratory/Chest: Denies cough, dyspnea, excessive phlegm production, hemoptysis, productive cough, shortness of breath at rest, shortness of breath with exertion, wheezing or other Gastrointestinal Gastrointestinal: Denies abdominal pain, coffee ground emesis, constipation, diarrhea, dyspepsia, hematemesis, hematochezia, loose stools, melena, nausea, vomiting or other Musculoskeletal Musculoskeletal: Reports arthralgias Neurologic Neurologic: Reports tingling and tremor(s) Psychiatric Psychiatric: Reports anxiety Vital Signs Vital Signs Vital Signs: 08/03/23 13:14 08/03/23 14:04 Temperature 98 F Temperature Source Temporal Pulse Rate 92 82 Respiratory Rate 16 18 Blood Pressure 146/95 H 139/96 H Blood Pressure Mean 112 110 Pulse Ox 100 98 Oxygen Delivery Method Room Air Room Air Weight Weight: 198 lb 3 oz Body Mass Index (BMI) 27.6 Results Medical Records Data Attestation: I reviewed the patient's medical records Lab / Micro Data Attestation: I reviewed the patient's lab results. 08/03/23 13:55 08/03/23 13:55 Labs: Laboratory Results - last 24 hr 08/03/23 13:45: Urine Opiates Screen NEGATIVE, Urine Methadone Screen NEGATIVE, Ur Barbiturates Screen NEGATIVE, Ur Phencyclidine Scrn NEGATIVE, Ur Amphetamines Screen NEGATIVE, MDMA (Ecstasy) Screen POSITIVE H, U Benzodiazepines Scrn NEGATIVE, Urine Cocaine Screen POSITIVE H, U Cannabinoids Screen NEGATIVE, Ur Drug Screen Comment 08/03/23 13:55: WBC 5.7, RBC 4.36 L, Hgb 14.4, Hct 42.8, MCV 98.2 H, MCH 33.0 H, MCHC 33.6, RDW Std Deviation 47.1 H, RDW Coeff of Abilio 13.1, Plt Count 233, MPV 8.5, Immature Gran % (Auto) 0.200, Neut % (Auto) 54.1, Lymph % (Auto) 30.6, Grafton % (Auto) 7.4, Eos % (Auto) 6.8 H, Baso % (Auto) 0.9, Absolute Neuts (auto) 3.1, Absolute Lymphs (auto) 1.75, Nucleated RBC % 0, Sodium 132 L, Potassium 3.9, Chloride 102, Carbon Dioxide 29.0, Anion Gap 1 L, BUN 17, Creatinine 0.66 L, Estim Creat Clear Calc 153.71, Est GFR (MDRD) Af Amer 169, Est GFR (MDRD) Non-Af 140, BUN/Creatinine Ratio 25.8 H, Glucose 109 H, Calcium 9.4, Total Bilirubin 0.30, AST 16, ALT 21, Alkaline Phosphatase 74, Total Protein 8.3 H, Albumin 4.2, Globulin 4.1, Albumin/Globulin Ratio 1.0, Ethyl Alcohol < 3.0 Assessment & Plan Assessment/Plan (1) Opiate abuse, continuous: (2) Cocaine use: PLAN: Plan 43-year-old male with history of chronic opioid and cocaine use presents for inpatient therapy for withdrawal. He has no other past significant history 1. Opioid withdrawal: -Will start therapy as per the clinical opioid withdrawal scale, for anxiety would use clonazepam or lorazepam, dicyclomine for abdominal cramping or pain -Hydroxyzine for anxiety/insomnia -Zofran for nausea vomiting -We will use buprenorphine/naloxone for medically supervised withdrawal therapy and taper accordingly 2. Cocaine use: Continue to monitor, no medical therapy needed 3. Nicotine dependence: Nicotine patches prescribed Charges/Coding Visit Charges Inpatient E&M: 39791 Subs Hosp L2
[2023-08-03 16:01] VITALS: BMI 26.6
[2023-08-03 16:15] VITALS: BP 122/103; PULSE 67; RESP 18; TEMP 36.6; O2SAT 98
--- OUTSIDE RECORDS SUMMARY | 2023-08-03 16:17 | XMS RPT_ITS | CCD ---
Author Name Unknown Address [address] [place] [address] Organization [facility] Care Team Providers Care Low Heel Builder Name Role Phone Derrick Bloom Attending Unavailable [...] Body height 177.8 cm No Pcp Required [facility] 08-31-2021 19:27-0500 Body temperature 98.06 [degF] No Pcp Required [facility] 08-31-2021 19:27-0500 Diastolic blood pressure 84 mm[Hg] No Pcp Required [facility] 08-31-2021 19:27-0500 Heart rate 92 /min No Pcp Required [facility] 08-31-2021 19:27-0500 Respiratory rate 16 /min No Pcp Required [facility] 08-31-2021 19:27-0500 SaO2% (BldA) [Mass fraction] 98 % No Pcp Required [facility] 08-31-2021 19:27-0500 Systolic blood pressure 129 mm[Hg] No Pcp Required [facility] 01-08-2021 14:45-0400 Body height 180.3 cm No Pcp Required [facility] 01-08-2021 14:45-0400 Body temperature 97.88 [degF] No Pcp Required [facility] 01-08-2021 14:45-0400 Diastolic blood pressure 84 mm[Hg] No Pcp Required [facility] 01-08-2021 14:45-0400 Heart rate 74 /min No Pcp Required [facility] 01-08-2021 14:45-0400 Respiratory rate 14 /min No Pcp Required [facility] 01-08-2021 14:45-0400 SaO2% (BldA) [Mass fraction] 98 % No Pcp Required [facility] 01-08-2021 14:45-0400 Systolic blood pressure 135 mm[Hg] No Pcp Required [facility] 02-16-2020 12:30-0400 Body Temperature 98.1 [degF] [facility] 02-16-2020 12:30-0400 BP Diastolic 83 mm[Hg] [facility] 02-16-2020 12:30-0400 BP Systolic 132 mm[Hg] [facility] 02-16-2020 12:30-0400 Pulse (Heart Rate) 69 /min [facility] 02-16-2020 12:30-0400 Pulse Oximetry 96 % Ayden Buck [facility] 02-16-2020 12:30-0400 Respiratory Rate 16 /min Ayden Buck [facility] 02-15-2020 04:42-0400 Respiratory rate 0 /min Aydenantonio Buck [facility] 02-15-2020 03:21-0400 BMI (Body Mass Index) 26.72 kg/m2 Ayden Buck [facility] 02-15-2020 03:21-0400 Body weight 89.36 kg Ayden Buck [facility] 02-15-2020 03:21-0400 Height 182.9 cm Ayden Buck [facility] 05-15-2019 17:21-0500 BP Diastolic 92 mm[Hg] [facility] [employer] 05-15-2019 17:21-0500 BP Systolic 159 mm[Hg] [facility] 05-15-2019 17:21-0500 Pulse (Heart Rate) 73 /min [facility] [employer] [facility] 05-15-2019 17:21-0500 Pulse Oximetry 100 % [facility] [employer] [facility] 05-15-2019 17:21-0500 Respiratory Rate 16 /min [facility] 05-15-2019 15:11-0500 BMI (Body Mass Index) 24.41 kg/m2 [facility] 05-15-2019 15:11-0500 Body Temperature 98.71 [degF] [facility] [employer] [facility] 05-15-2019 15:11-0500 Body weight 81.65 kg [facility] 05-15-2019 15:11-0500 Height 182.9 cm [facility] Encounters Encounter Date Encounter Type Care Provider Facility Start: 08-31-2021 End: 08-31-2021 Emergency department patient visit Екатерина Hathaway [facility] 05 Start: 01-08-2021 End: 01-08-2021 Emergency department patient visit Cleve Connerdrine [facility] 04 Start: 02-18-2020 End: 02-22-2020 Patient encounter procedure PHYSICIAN NO [facility] Start: 02-15-2020 End: 02-16-2020 Patient encounter procedure PHYSICIAN NO [facility] Start: 02-15-2020 End: 02-16-2020 Emergency department patient visit Ayden Buck Work Phone: [facility] Cardiovascular Step Down Procedures Date Procedure [...] Evaluation of arteri al blood gas studies Ayden Buck Work Phone: Start: 02-15-2020 Radiologic exam ches t single view Ayden Buck Work Phone: Start: 02-15-2020 Hepatitis B surface antibody measurement Duy Mcgill Araceli Work Phone: Start: 02-15-2020 Human immunodeficien cy virus test Duy Mcgill Araceli Work Phone: Start: 02-15-2020 LIGHT BLUE TOP Ayden Sh awn [place] Work Phone: Start: 02-15-2020 LIGHT GREEN TOP Ayden S mack [place] Work Phone: Start: 02-15-2020 RAINBOW DRAW Ayden Martinez n [place] Work Phone: Start: 02-15-2020 Acetaminophen [Mass/ volume] in Serum or Plasma Ayden Chivo [place] Work Phone: Start: 02-15-2020 Complete blood count with white cell differential, automated Ayden Chivo [place] Work Phone: Start: 02-15-2020 Complete blood count [...] Influenza vaccination given Sequential Influenza Vaccine (#1) [facility] Start: 02-25-2020 End: 02-25-2020 Office Visit 02/25/2020 [facility] [address] [place] [address] [phone] [facility] Start: 02-28-2019 Influenza vaccination INFLUENZA VACCINE (#1) [facility] Start: 1999 Third diphtheria, tetanus and acellular pertussis (DTaP) vaccination TDAP (ADULT) [facility] Start: 1998 Hepatitis C antibody, confirmatory test Hepatitis C Screening [facility] Start: 1998 Tetanus vaccination TETANUS [facility] Start: 1995 HIV screening HIV Screening [facility] Start: 1993 HIV screening HIV SCREENING DISCUSSION [facility] Start: 1983 History and physical examination, annual for health maintenance Wellness Visit [facility] Start: 1980 Tetanus vaccination Tetanus: Every 10yrs [facility] Buprenorphine Ql (U) Buprenorphi ne Screen, Urine Lab Routine 02/15/2020 7:55 PM EDT [facility] Fentanyl, Urine Fentanyl, Urine Lab Routine 02/15/2020 7:56 PM EDT [facility] Troponin measurement Troponin On ce Lab Timed 02/15/2020 9:04 AM EDT [facility] Payers Date Payer Category Payer Unknown [facility] [place] [facility] OR OTHER [facility] [place] [facility] OR OTHER xxxxxxxxx 2019-Present xxxxxxxxx [id number] 2019 Medicaid [employer] [facility] ED MEDICAID [employer] [id number] 2019-Present [id number] 1980 Unknown [id number] 1980 Unknown [id number] 1980 Unknown [id number] 1959 Unknown [id number] Self-pay [id number] Unknown Social History Date Type Detail Facility Start: 05-15-2019 End: 02-15-2020 Tobacco smoking status NHIS Current every day smoker [facility] History of tobacco use Cigarette Smoker [facility] Start: 05-15-2019 Cigarettes smoked current (pack per day) - Reported [facility] Start: 05-15-2019 End: 02-15-2020 Alcohol intake Current drinker of alcohol (finding) [facility] Start: 11-04-2016 Alcohol Comment socially [facility] Sex Assigned At Not on file [facility] Start: 02-15-2020 Tobacco use and exposure Never used [facility] Exposure to SARS-CoV -2 (event) Not sure [facility] Tobacco smoking consumption unknown [facility] Summary Purpose Family History No Family History Records FoundNo Family History Records FoundNo Family History Records FoundNo Family History Records FoundNo Family History Records Found Advance Directives No Advanced Directives Records FoundDocuments on File Type Date Recorded Patient Charge Coordinator Expl anation Advance Directives and Livin g Will 02/15/2020 3:24 AM Latest Code Status on File Code Status Date Activated Date Inactivated Comments Full Code 02/15/2020 8:12 AM 02/16/2020 2:59 PM Discharge Instructions * Attachments The following attachments cannot be sent through Care Everywhere. * Abdominal Pain (Sudanese) documented in this encounter* Discharge Instr - Care Coordination* Alondra Estrella RN - 02/15/2020 7:32 AM EDT [facility] Trust the experts at [facility] to meet your healthcare needs. When you make an appointment with [facility], it's the start of a long-lasting partnership that's committed to your health. We provide the very best prevention, wellness and illness care, and give you access to the advancedmedical services and expert treatment available at [facility]. Please note that the providers listed below are accepting new patients. [place]: [address], [address] [place] [address] MD Mae Lopez MD [address] [place] [address] MD Cherelle Bah, FANS CLERK [address] [place] [address] MD Debbi Puente, ANGEL [place], [place] [address] MD Harriett Mason, FANS CLERK [address], [place] [phone] Sangeeta Stallworth MD For the most up-to-date information on a care provider in your community, use the Find a Doctor tool on [employer] * Additional Instructions* Antoine Aguilar RN - [...] or absorbed through the skin. Drugs include [id number] medicine (such as aspirin or acetaminophen) and prescription medicine. They also include vitamins and supplements. And they include illegal drugs such as cocaine and heroin. And poisons are all around us. They include household abalone sheller, cosmetics, houseplants, and garden chemicals. The doctor [...] mix cleaning products. Try to use nontoxic abalone sheller. These include vinegar, lemon juice, andbaking soda. When should you call for help? Poison control centers, hospitals, or your doctor can give immediate advice in the case of a poisoning. The [facility] National Poison Control Hotline phone number is . Have the poison container with you so you can give complete information to the poison control center, such as what the poison or substance is, how much was taken and when. Do not try to make the person vomit. [id number] anytime you think you may need emergency [...] Log into your personal health record on https://[employer] and enter A385 in the Education box to learn more about Alcohol, Drug, or Poison Ingestion: Care Instructions. Current as of: December 23, 2018 Content Version: 12. [employer]. Care instructions adapted under license by your healthcare professional. If you have questions about a medical condition or this instruction, always ask your healthcare professional. [employer] disclaims any warranty or liability for your use of this information. * Attachments The following attachments cannot be sent through Care Everywhere. * Heroin Use and Withdrawal: General Info (Sudanese) documented in this encounter Assessments Diagnosis Epigastric pain- Primary Abdominal pain, epigastric Diagnosis Accidental drug overdose, initial encounter- Primary Altered mental status Polysubstance abuse (HCC) Other, mixed, or unspecified nondependent drug abuse, unspecified Essential hypertension Unspecified essential hypertension Hospital Course * Debra Olivier MD - 02/16/2020 11:39 AM EDT HOSPITALIST DISCHARGE SUMMARY Patient: Ron Thompson Account: [id number] Admitted: 02/15/2020 Discharge Date/Time: 02/16/2020 Clinical Summary FINAL DIAGNOSIS: Active Problems: Altered mental status Accidental drug overdose Polysubstance abuse (HCC) Essential hypertension REASON FOR HOSPITALIZATION AND ADMITTING DIAGNOSIS: Drug Overdose Accidental drug overdose, initial encounter [T50.061L] HOSPITAL COURSE: Ron Thompson is a 39 [...] Physician(s) Family: Physician No, Phone: None, Address: [facility] Follow Up: Duy Charles MD [address] [place], [place] [id number] Patient instructions, including activity, were given to the patient/family at discharge. Please seethe After Visit Summary in the medical record for details. Time spent on discharge:45 mins Completed by: Debra Oilvier on 02/16/20, 11:39 AM documented in this [...] DATE CREATED AUTHOR AUTHOR'S ORGANIZ ATION 02/24/2019 [facility] DATE CREATED AUTHOR AUTHOR'S ORGANIZ ATION 05/18/2019 [facility] DATE CREATED AUTHOR AUTHOR'S ORGANIZ ATION 02/22/2020 [facility] DATE CREATED AUTHOR AUTHOR'S ORGANIZ ATION 09/05/2021 [facility] Reason for Visit (unrecogniz ed section and content) Reason Comments Drug Overdose Status Reason Specialty Diagnoses / Procedures Referre d By Contact Referred To Contact Diagnoses Accidental drug overdose, initial encounter Yajaira Emery CNP - 02/15/2020 10:00 AM EDT H&P Notes (unrecognized sect ion and content) [facility] Medicine Inpatient H&P 02/15/2020 Yajaira Emery CNP [facility] Patient: Ron Thompson Date of : [...] was interested in the patient getting into [facility] today by 1399. Met with the patient and he indicated that he has an appointment on the at 8 am. The patient insists he can not go to [facility] today and he was not willing to sign a release for this worker to call them. Called and updated Dr. Charles to above. Updated Dr. Olivier to above. [facility] ADDICTION MEDICINE CONSULT NOTE Patient Name: Ron Thompson Admit Date: MR #: [id number] : 1980 Physicians: Physician No (Family); No ref. provider found (referring) Hospitalist group Active Problems: Altered mental status Accidental drug overdose Polysubstance abuse (HCC) Essential hypertension Assessment and Plan: 1. Opiate Addiction -patient states that he mainly has been using heroin since 2 to 3 weeks after he got out of a detox at [facility]. He states that he did not have any groups or follow-up or medications and has no family physician. He is interested in going into detox inpatient as he feels that the only way that he can get help and be able to be support for his 16-year-old daughter and his mother. He states he is only done snorting. We will have the social sciences professor Amanda do an intake with [facility] ([phone]) for the Withdrawal Management Unit ([phone]) as a goal If inpatient does not [...] morning. His 16-year-old daughter works at a [employer] shop and had come home and he [...] previous inpatient detox in November 2018 at [facility] but never had any follow-up after that [...] file Gets together: Not on file Attends jainism service: Not on file Active member of club or organization: Not on file Attends meetings of clubs or organizations: Not on file Relationship status: Not on file Other Topics Concern Not on file Social History Narrative Not on file AOD History: Opioids nasal 3 daily last used 2AM Patient had [facility] inpatient with 3 days of detox in [...] Chloride 109 (H) 98 - 108 mmol/L [id number] 8.4 mm Hg Urine Drug Screen Collection [...] View Preliminary Result No acute cardiopulmonary disease. [employer] ID: [id number] documented in this encounter [...] AND RESP 25 ABGS BEING DONE AT [facility] Special isolation precautions are in place with signage outside this patient's room. This assurance services manager health care performs hand hygiene and enters the patient room wearing: ? gloves ? an appropriately fitting (N-95, PAPR, Aura) mask ? face shield ? protective gown to provide care. See documentation for the care provided. XRAY AT [facility] PT REMOVED ALL TUBING AGAIN THIS TIME INCLUDING IV THIS TIME AND WILL GET NEW SITE WITH LABS AND ABGS END TIDAL 36 AND OXYGEN AT 99% WITH RESP 16 WHEN HE LAYS STILL AND DOES NOT REMOVE MONITORING TUBING HE CONTINUES TO HOLD HIS BREATH AND TIMES AND THEN BREATHES IRREGULARLY THIS RN HAS TO BE AT [facility] SINCE PT IS PULLING AT LINES AND [...] SAME THING BUT EVENTUALLY HE DOES ANSWER [facility] ED Physician Note: NAME: Ron Thompson 39 y.o. CSN: [id number] PCP: Physician No History: Chief Complaint: Heroin [...] file Gets together: Not on file Attends jainism service: Not on file Active member of [...] Procedure Abnormality Status --------- ------ CBC Auto Differential[[id number]] Abnormal Final result Please view results for these tests on the individual orders. TROPONIN XR Chest 1 View Preliminary Result No acute cardiopulmonary disease. [employer] ID: [id number] ED Course / Medical Decision Making: MDM Clinical Impression: 1. Accidental drug overdose, initial encounter Disposition: Patient is being hospitalize to observation unit (CDU) Ayden Buck M.D. [facility] Emergency Department Ayden Buck MD 02/15/20 0654 [...] BE BASED ON THE PRIMARY CLINICAL RECORDS. [employer] provides no warranty or guarantee of the accuracy or completeness of information in this document.
[2023-08-03] MEDS: cloNIDine HCl 0.1 MG Tablet 0.100000000000000006 MG PO (16:22)
[2023-08-03] MEDS: Methocarbamol 750 MG Tablet PO (16:22)
[2023-08-03] MEDS: hydrOXYzine PAM 25 MG Capsule 50 MG PO ×2 (16:22→22:06)
[2023-08-03] MEDS: Dicyclomine 10 MG Capsule 20 MG PO (16:22)
[2023-08-03] MEDS: Buprenorphine HCl 2 MG TAB.SUBL SL (18:19)
[2023-08-03 20:30] VITALS: BP 97/56; PULSE 65; RESP 18; TEMP 36.6; O2SAT 97
[2023-08-03] MEDS: traZODone 100 MG Tablet PO (22:05)
[2023-08-04] MEDS: Buprenorphine HCl 2 MG TAB.SUBL SL ×3 (02:24→18:01)
[2023-08-04] MEDS: Methocarbamol 750 MG Tablet PO ×3 (02:24→18:01)
[2023-08-04 02:30] VITALS: BP 116/65; PULSE 70; RESP 18; TEMP 37.1; O2SAT 97
[2023-08-04] MEDS: Ondansetron 8 MG Tablet PO (05:22)
[2023-08-04] MEDS: cloNIDine HCl 0.1 MG Tablet 0.100000000000000006 MG PO ×3 (05:25→20:36)
[2023-08-04] MEDS: Gabapentin 300 MG Capsule PO ×2 (05:25→20:36)
[2023-08-04 06:15] LABS: Absolute Lymphocyte Count 1.77 X10^3/uL (0.83-4.51); Absolute Neutrophil Count 2.5 X10^3/uL (2.0-7.7); Basophil# 0.07 X10^3/uL; Basophil% 1.3 % (0-1); Eosinophil# 0.46 X10^3/uL; Eosinophils% 8.6 % (0-5); Hematocrit 41.7 % (40-54); Hemoglobin 13.9 g/dL (13.0-16.5); Lymphocyte # 1.77 X10^3/ul (0.83-4.51); Lymphocyte % 33.1 % (19-41); Mean Corp Hgb Conc 33.3 g/dL (32-36); Mean Corpuscular Hgb 32.9 pg (27.0-32.0); Mean Corpuscular Volume 98.6 fL (80-94); Monocyte# 0.52 X10^3/uL; Monocyte% 9.7 % (0-10); NRBC Flagged by Analyzer 0 % (0-5); Neutrophil # 2.51 X10^3/uL (2.7-7.7); Neutrophil % 47.1 % (47-70); Platelet Count 245 K/mm3 (150-450); RBC Distribution Width CV 13.2 % (11.6-14.6); RBC Distribution Width SD 47.6 fl (35.1-43.9); Red Blood Count 4.23 M/mm3 (4.6-6.2); White Blood Count 5.3 K/mm3 (4.4-11.0)
[2023-08-04 07:06] LABS: AST(SGOT) 16 U/L (15-37); Alanine Aminotransfer ALT/SGPT 21 U/L (16-61); Albumin, Serum 3.6 g/dL (3.2-5.0); Alkaline Phosphatase 67 U/L (45-117); Anion Gap 3 (5-15); BUN 14 mg/dL (7-18); BUN/Creat Ratio 21.4 RATIO (10-20); Calcium,Total 9.2 mg/dL (8.5-10.1); Chloride 108 mmol/L (98-107); Creatinine, Serum 0.66 mg/dL (0.70-1.30); EST Glomerular Filtration Rate 141 mL/min (>60); Est Glom Filt Rate - Afr Amer 171 mL/min (>60); Estimated Creatinine Clearance 153.71 ml/min; Globulin 3.7 g/dL (2.2-4.2); Glucose 110 mg/dL (74-106); Protein, Total 7.3 g/dL (6.4-8.2); Sodium Level 138 mmol/L (136-145)
[2023-08-04] MEDS: hydrOXYzine PAM 25 MG Capsule 50 MG PO ×2 (07:47→18:01)
[2023-08-04 08:10] VITALS: BP 125/78; PULSE 92; RESP 16; TEMP 36.8; O2SAT 98
--- NOTE | 2023-08-04 09:21 | ADDICTION ---
clinician met with client to discuss his hx of substance use and relapse. client reported a need to remain sober, however, he would like to attend a lower LOC; individual counseling only. client appears to have co-occurring addiction concerns; anxiety and mood dysregulation. clinician discussed tx options upon discharge. client resides in [place] and would like to attend [facility] for individual/outpatient services. clinician will begin to coordinate care with [facility] for an appiontment upon release.
--- NOTE | 2023-08-04 09:42 | PN.HOSP_ITS ---
Reason for Visit Reason for Visit: Diagnoses Opioid abuse, uncomplicated (08/03/23) Cocaine use, unspecified, uncomplicated (08/03/23) Subjective Subjective Patient appears uncomfortable, notes ongoing tremulousness and persistent withdrawal symptoms. Reports specifically left-sided chest discomfort and on examination patient is mildly rhonchorous but does have poor inspiratory effort. He notes some pleuritic discomfort with deep inspiratory effort. He denies any markedly productive cough but states he has had a mild cough. Patient denies fevers, chills, nausea, emesis, abdominal pain, dyspnea. Objective Data Objective Data Vital Signs: Vital Signs Temp Pulse Resp BP Pulse Ox O2 Del Method 98.2 F 92 16 125/78 H 98 Room Air 08/04/23 08:10 08/04/23 08:10 08/04/23 08:10 08/04/23 08:10 08/04/23 08:10 08/04/23 08:10 Oxygen Delivery Method Room Air Weight: 190 lb 9 oz Body Mass Index (BMI) 26.6 Intake & Output: Intake and Output for Last 24 Hours 08/02/23 08/03/23 08/04/23 23:59 23:59 23:59 Intake Total 650 / 650 Balance 650 / 650 Lab / Micro Data 08/04/23 05:27 08/04/23 05:27 Labs: Laboratory Results - last 24 hr 08/03/23 13:45: Urine Opiates Screen NEGATIVE, Urine Methadone Screen NEGATIVE, Ur Barbiturates Screen NEGATIVE, Ur Phencyclidine Scrn NEGATIVE, Ur Amphetamines Screen NEGATIVE, MDMA (Ecstasy) Screen POSITIVE H, U Benzodiazepines Scrn NEGATIVE, Urine Cocaine Screen POSITIVE H, U Cannabinoids Screen NEGATIVE, Ur Drug Screen Comment 08/03/23 13:55: WBC 5.7, RBC 4.36 L, Hgb 14.4, Hct 42.8, MCV 98.2 H, MCH 33.0 H, MCHC 33.6, RDW Std Deviation 47.1 H, RDW Coeff of Abilio 13.1, Plt Count 233, MPV 8.5, Immature Gran % (Auto) 0.200, Neut % (Auto) 54.1, Lymph % (Auto) 30.6, [place] % (Auto) 7.4, Eos % (Auto) 6.8 H, Baso % (Auto) 0.9, Absolute Neuts (auto) 3.1, Absolute Lymphs (auto) 1.75, Nucleated RBC % 0, Sodium 132 L, Potassium 3.9, Chloride 102, Carbon Dioxide 29.0, Anion Gap 1 L, BUN 17, Creatinine 0.66 L, Estim Creat Clear Calc 153.71, Est GFR (MDRD) Af Amer 169, Est GFR (MDRD) Non-Af 140, BUN/Creatinine Ratio 25.8 H, Glucose 109 H, Calcium 9.4, Total Bilirubin 0.30, AST 16, ALT 21, Alkaline Phosphatase 74, Total Protein 8.3 H, Albumin 4.2, Globulin 4.1, Albumin/Globulin Ratio 1.0, Ethyl Alcohol < 3.0 08/04/23 05:27: WBC 5.3, RBC 4.23 L, Hgb 13.9, Hct 41.7, MCV 98.6 H, MCH 32.9 H, MCHC 33.3, RDW Std Deviation 47.6 H, RDW Coeff of Abilio 13.2, Plt Count 245, MPV 9.0, Immature Gran % (Auto) 0.200, Neut % (Auto) 47.1, Lymph % (Auto) 33.1, [place] % (Auto) 9.7, Eos % (Auto) 8.6 H, Baso % (Auto) 1.3 H, Absolute Neuts (auto) 2.5, Absolute Lymphs (auto) 1.77, Nucleated RBC % 0, Sodium 138, Potassium 4.0, Chloride 108 H, Carbon Dioxide 27.0, Anion Gap 3 L, BUN 14, Creatinine 0.66 L, Estim Creat Clear Calc 153.71, Est GFR (MDRD) Af Amer 171, Est GFR (MDRD) Non-Af 141, BUN/Creatinine Ratio 21.4 H, Glucose 110 H, Calcium 9.2, Total Bilirubin 0.20, AST 16, ALT 21, Alkaline Phosphatase 67, Total Protein 7.3, Albumin 3.6, Globulin 3.7, Albumin/Globulin Ratio 1.0 Physical Exam Narrative Physical Examination: General: Awake, alert, oriented x 3 and cooperative, laying in the MS bed, fatigued and uncomfortable appearing. Skin: Normal color, normal turgor, no icterus, no cyanosis except for staged ecchymoses, suspected secondary to recent lab draws. HEENT: AT/NC, EOMI, PERRLA, mildly dry MM. Lungs: Diminished, greater bases, left greater than right, left base mildly rhonchorous, noting pleuritic discomfort currently, no marked rales or wheezing., no rales, ronchi or wheezing. Heart: Regular rate and rhythm; no gallop, rub audible. Abdomen: Soft, NTTP, ND, mildly hyperactive BS. Extremities: No cyanosis, clubbing, or edema. Neurological: Patient awake, alert, oriented as noted, cognitive function intact; pupils equally reactive to light and accommodation, cranial nerves II- XII grossly normal, moving all 4 extremities, no focal deficits, strength moderately globally decreased secondary to withdrawal symptoms and acute presentation complaints as noted. Psychiatric: Affect appears flat, fatigued, no acute evidence of depressive or anxiety feelings. Assessment & Plan Assessment/Plan (1) Opiate abuse, continuous: PLAN: Plan The patient is a 43 y/o M w/ PMHx: Tobacco use, Polysubstance abuse (Cocaine, Opiates) who presents to the [facility] ED on 08/03/23 w/ noted acute opiate withdrawal. 1. Acute Opiate Withdrawal: Will admit to [place], routine labs including CBC, CMP, urine for drug screen obtained in the ED, initiated and continue on protocol wi th tapering course of Subutex, as needed tylenol, ibuprofen, bowel regimen, gabapentin, Bentyl, Vistaril, methocarbamol, clonidine, PRN nightly trazodone for insomnia, IV fluids, IV antiemetics. Once patient clinically improved and completion of taper nearing will plan consultation with case management for transition to next level of rehabilitation care. 2. Chest discomfort with atypical examination, rhonchorous left side, possibly atelectasis related: Chest x-ray obtained with no acute findings with hyperinflation, respiratory viral panel negative, negative, sputum culture requested but at this time no obvious infectious etiology w/ CBC with WBC 5.3 without marked shift and afebrile, procalcitonin <0.04. Encouraged aggressive I- S and will continue to closely monitor. 3. Polysubstance Abuse: Given polysubstance use, will to be cautious obtain HIV, hepatitis panel, RPR. 4. Tobacco Abuse: Encouraged cessation, inpatient consultation per RT, NR if desired. 5. DVT prophylaxis: Low risk for type of admission. Charges/Coding Visit Charges Inpatient E&M: 72453 Subs Hosp L3
--- NOTE | 2023-08-04 10:52 | RAD_ITS ---
STUDY: X-RAY CHEST REASON FOR EXAM: Male, 43 years old. ? PNA TECHNIQUE: PA and lateral views of the chest. COMPARISON: None. FINDINGS: Hyperinflation. Mild increased markings at the lung bases suggestive of mild scarring. There is no demonstrated pleural abnormality. Normal size heart. Normal mediastinum and francesca. Normal visualized pulmonary arteries. Normal visualized aortic arch and descending thoracic aorta. Normal visualized thoracic spine. Normal visualized ribs, clavicles, and shoulders. There is no demonstrated abnormality of the visualized soft tissue structures of the upper abdomen. RAD/Chest PA and Lateral IMPRESSION: Hyperinflation. No acute infiltrate is seen. Electronically Signed: Mark Swanson MD at 12:48 EST ,
[2023-08-04 11:05] LABS: HIV - WCH Non-Reactive (Nonreactive); Hepatitis B Surface Antibody Non-Reactive; Hepatitis B Surface Antigen Non-Reactive (Nonreactive); Hepatitis C Antibody Non-Reactive (Nonreactive); Syphilis Antibodies Non-reactive
[2023-08-04 11:22] VITALS: BP 127/84; PULSE 78; RESP 16; TEMP 36.4; O2SAT 100
[2023-08-04 11:24] LABS: Procalcitonin < 0.04 ng/mL (0.00-0.09)
[2023-08-04 13:00] VITALS: O2SAT 95
[2023-08-04] MEDS: Ensure Plus High Protein 120 ML LIQUID PO ×3 (13:33→20:37)
[2023-08-04] MEDS: Polyethylene Glycol 3350 17 GM PACKET PO (14:11)
[2023-08-04 15:02] VITALS: BP 129/86; PULSE 89; RESP 18; TEMP 36.9; O2SAT 98
[2023-08-04] MEDS: Dicyclomine 10 MG Capsule 20 MG PO (20:36)
[2023-08-04] MEDS: traZODone 100 MG Tablet PO (20:36)
[2023-08-04 21:05] VITALS: BP 130/88; PULSE 68; RESP 16; TEMP 36.6; O2SAT 95
[2023-08-05] MEDS: Methocarbamol 750 MG Tablet PO (02:35)
[2023-08-05] MEDS: hydrOXYzine PAM 25 MG Capsule 50 MG PO (02:36)
[2023-08-05] MEDS: Buprenorphine HCl 2 MG TAB.SUBL SL ×3 (02:36→17:29)
[2023-08-05 02:40] VITALS: BP 116/68; PULSE 70; RESP 16; TEMP 36.8; O2SAT 95
--- NOTE | 2023-08-05 06:21 | PCM.PN.HOSP ---
Reason for Visit Reason for Visit: Diagnoses Opioid abuse, uncomplicated (08/03/23) Cocaine use, unspecified, uncomplicated (08/03/23) Subjective Subjective Patient with ongoing nausea, tremors, anxiety but improved from day prior through the evening and into the early AM but upon late AM evaluation patient notes feeling notably improved with resolved nausea and no tremulousness. He notes feeling less anxious. He also notes dyspnea sensation and L sided chest discomfort has resolved. Patient denies fevers, chills, nausea, emesis, abdominal pain. Objective Data Objective Data Vital Signs: Vital Signs Temp Pulse Resp BP Pulse Ox O2 Del Method 98.2 F 70 16 116/68 95 Room Air 08/05/23 02:40 08/05/23 02:40 08/05/23 02:40 08/05/23 02:40 08/05/23 02:40 08/05/23 02:40 Oxygen Delivery Method Room Air Weight: 190 lb 9 oz Body Mass Index (BMI) 26.6 Intake & Output: Intake and Output for Last 24 Hours 08/03/23 08/04/23 08/05/23 23:59 23:59 23:59 Intake Total 1899 / 1900 Balance 1899 / 1899 Medical Nutrition Assessment Dietitian: Malnutrition Criteria Met Start: 08/04/23 13:02 Freq: Status: Active Protocol: Document 08/04/23 13:02 LEONIE (Rec: 08/04/23 13:03 LEONIE Desktop) Nutrition Malnutrition Evidence of Malnutrition Exists Yes Malnutrition (severe): Social/Behavioral/ Environmental Evidenced By Suboptimal Energy Intake ( Severe),Weight Loss (Severe) Clinical Problem Chronic Disease or Condition Related Malnutrition Etiology related to drug addiction and use Signs/Symptoms as evidenced by 13.4% unintended wt loss and po intake meeting <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 Lab / Micro Data 08/04/23 05:27 08/04/23 05:27 Labs: Laboratory Results - last 24 hr 08/04/23 05:27: Sodium 138, Potassium 4.0, Chloride 108 H, Carbon Dioxide 27.0, Anion Gap 3 L, BUN 14, Creatinine 0.66 L, Estim Creat Clear Calc 153.71, Est GFR (MDRD) Af Amer 171, Est GFR (MDRD) Non-Af 141, BUN/Creatinine Ratio 21.4 H, Glucose 110 H, Calcium 9.2, Total Bilirubin 0.20, AST 16, ALT 21, Alkaline Phosphatase 67, Total Protein 7.3, Albumin 3.6, Globulin 3.7, Albumin/Globulin Ratio 1.0, Procalcitonin < 0.04, Syphilis Total Ab Non-reactive, Hep Bs Antigen Non-Reactive, Hep Bs Antibody Non-Reactive, Hepatitis C Antibody Non-Reactive, HIV 1&2 Antibody Non-Reactive Micro: Microbiology 08/04/23 11:22 Mucosa - Nose Respiratory Panel (PCR) - Final 08/04/23 13:30 Urine, Clean Catch Legionella Antigen - Final 08/04/23 13:30 Urine, Clean Catch Streptococcus pneumoniae Antigen (M - Final Radiography Diagnostic Testing: Radiology Impression Chest X-Ray 08/04/23 10:52 IMPRESSION: Hyperinflation. No acute infiltrate is seen. Electronically Signed: Mark Swanson MD at 12:48 EST , Physical Exam Narrative Physical Examination: General: Awake, alert, oriented x 3 and cooperative, laying in the MS bed, improved appearance, more interactive. Skin: Normal color, normal turgor, no icterus, no cyanosis except for staged ecchymoses, suspected secondary to recent lab draws. HEENT: AT/NC, EOMI, PERRLA, mildly dry MM. Lungs: Improved, still diminished bases, but no rhonchi, improved effort, no rales or wheezing. Heart: Regular rate and rhythm; no gallop, rub audible. Abdomen: Soft, NTTP, ND, normal BS. Extremities: No cyanosis, clubbing, or edema. Neurological: Patient awake, alert, oriented as noted, cognitive function intact; pupils equally reactive to light and accommodation, cranial nerves II-XII grossly normal, moving all 4 extremities, no focal deficits, strength improved, mildly globally decreased. Psychiatric: Affect appears more normal, less uncomfortable, less fatigued, no acute evidence of depressive or anxiety feelings. Assessment & Plan Assessment/Plan (1) Opiate abuse, continuous: PLAN: Plan The patient is a 43 y/o M w/ PMHx: Tobacco use, Polysubstance abuse (Cocaine, Opiates) who presents to the [facility] ED on 08/03/23 w/ noted acute opiate withdrawal. 1. Acute Opiate Withdrawal: Will admit to [place], routine labs including CBC, CMP, urine for drug screen obtained in the ED, initiated and continue on protocol with tapering course of Subutex, as needed tylenol, ibuprofen, bowel regimen, gabapentin, Bentyl, Vistaril, methocarbamol, clonidine, PRN nightly trazodone for insomnia, IV fluids, IV antiemetics. Once patient clinically improved and completion of taper nearing will plan consultation with case management for transition to next level of rehabilitation care. 08/05/23 improved appearance, withdrawal symptoms improving. 2. Chest discomfort with atypical examination, rhonchorous left side, possibly atelectasis related: Chest x-ray obtained with no acute findings with hyperinflation, respiratory viral panel negative, negative, sputum culture requested but at this time no obvious infectious etiology w/ CBC with WBC 5.3 without marked shift and afebrile, procalcitonin <0.04. Encouraged aggressive I-S and will continue to closely monitor. 08/05/23 discomfort resolved, improved deep breathing. 3. Polysubstance Abuse: Given polysubstance use, will to be cautious obtain HIV, hepatitis panel, RPR. 4. Tobacco Abuse: Encouraged cessation, inpatient consultation per RT, NR if desired. 5. DVT prophylaxis: Low risk for type of admission. Charges/Coding Visit Charges Inpatient E&M: 61592 Subs Hosp L2
[2023-08-05 07:20] VITALS: O2SAT 95
[2023-08-05 08:12] VITALS: BP 125/78; PULSE 80; RESP 16; TEMP 36.6; O2SAT 94
[2023-08-05] MEDS: Ensure Plus High Protein 120 ML LIQUID PO ×3 (09:57→17:29)
--- NOTE | 2023-08-05 10:14 | ADDICTION ---
clinician met with client to further discuss tx services upon detox discharge. client would like to attend [facility] outpatient services in [place] (patrick completed). clinician will coordinate care with this agency for individual counseling appointment.
--- NOTE | 2023-08-05 10:27 | ADDICTION ---
clinician coordinated care with [facility] services with patient present. [facility] informed client of walk in assessment times/dates. client was cooperative and requested mh and AoD services.
[2023-08-05] MEDS: Polyethylene Glycol 3350 17 GM PACKET PO (11:15)
[2023-08-05 11:17] VITALS: BP 112/81; PULSE 85; RESP 16; TEMP 36.6; O2SAT 98
[2023-08-05 16:09] VITALS: BP 125/89; PULSE 86; RESP 16; TEMP 37.1; O2SAT 98
[2023-08-05 20:05] VITALS: BP 134/95; PULSE 85; RESP 18; TEMP 36.7; O2SAT 97
[2023-08-05] MEDS: traZODone 100 MG Tablet PO (20:17)
[2023-08-06 03:02] VITALS: BP 128/94; PULSE 81; RESP 16; TEMP 36.6; O2SAT 99
[2023-08-06] MEDS: hydrOXYzine PAM 25 MG Capsule 50 MG PO (03:08)
[2023-08-06] MEDS: Ondansetron 8 MG Tablet PO (03:08)
[2023-08-06] MEDS: Buprenorphine HCl 2 MG TAB.SUBL SL (05:37)
--- NOTE | 2023-08-06 06:18 | PCM.PN.HOSP ---
Reason for Visit Reason for Visit: Diagnoses Opioid abuse, uncomplicated (08/03/23) Cocaine use, unspecified, uncomplicated (08/03/23) Subjective Subjective Patient with no acute events overnight per self and per nursing report. He notes that withdrawal symptoms have completely abated and he feels very well. He is eager for discharge and notes intention for follow-up with aggressive out of hospital program. Patient denies fevers, chills, nausea, emesis, abdominal pain, chest pain or dyspnea. Objective Data Objective Data Vital Signs: Vital Signs Temp Pulse Resp BP Pulse Ox O2 Del Method 97.9 F 81 16 128/94 H 99 Room Air 08/06/23 03:02 08/06/23 03:02 08/06/23 03:02 08/06/23 03:02 08/06/23 03:02 08/06/23 03:02 Oxygen Delivery Method Room Air Weight: 190 lb 9 oz Body Mass Index (BMI) 26.6 Intake & Output: Intake and Output for Last 24 Hours 08/04/23 08/05/23 08/06/23 23:59 23:59 23:59 Intake Total 1900 / 1900 1100 / 1100 500 / 500 Balance 1900 / 1900 1100 / 1100 500 / 500 Medical Nutrition Assessment Dietitian: Malnutrition Criteria Met Start: 08/04/23 13:02 Freq: Status: Active Protocol: Document 08/04/23 13:02 LEONIE (Rec: 08/04/23 13:03 LEONIE Desktop) Nutrition Malnutrition Evidence of Malnutrition Exists Yes Malnutrition (severe): Social/Behavioral/ Environmental Evidenced By Suboptimal Energy Intake ( Severe),Weight Loss (Severe) Clinical Problem Chronic Disease or Condition Related Malnutrition Etiology related to drug addiction and use Signs/Symptoms as evidenced by 13.4% unintended wt loss and po intake meeting <50% 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 Lab / Micro Data 08/04/23 05:27 08/04/23 05:27 Micro: Microbiology 08/04/23 13:10 Sputum, Expectorated/Coughed Gram Stain - Final 08/04/23 13:10 Sputum, Expectorated/Coughed Respiratory Culture - Preliminary Appears to be normal respiratory ruiz. Further studies to follow. 08/04/23 11:22 Mucosa - Nose Respiratory Panel (PCR) - Final 08/04/23 13:30 Urine, Clean Catch Legionella Antigen - Final 08/04/23 13:30 Urine, Clean Catch Streptococcus pneumoniae Antigen (M - Final Physical Exam Narrative Physical Examination: General: Awake, alert, oriented x 3 and cooperative, seated upright in [place] bed, already awake and interactive, well-appearing. Skin: Normal color, normal turgor, no icterus, no cyanosis except for staged ecchymoses, suspected secondary to recent lab draws. HEENT: AT/NC, EOMI, PERRLA, MMM. Lungs: Clear to auscultation bilaterally, improved effort, no rales, rhonchi or wheezing. Heart: Regular rate and rhythm; no gallop, rub audible. Abdomen: Soft, NTTP, ND, normal BS. Extremities: No cyanosis, clubbing, or edema. Neurological: Patient awake, alert, oriented as noted, cognitive function intact; pupils equally reactive to light and accommodation, cranial nerves II-XII grossly normal, moving all 4 extremities, no focal deficits, strength improved, preserved. Psychiatric: Affect appears normal, no acute evidence of depressive or anxiety feelings. Assessment & Plan Assessment/Plan (1) Opiate abuse, continuous: PLAN: Plan The patient is a 43 y/o M w/ PMHx: Tobacco use, Polysubstance abuse (Cocaine, Opiates) who presents to the [facility] ED on 08/03/23 w/ noted acute opiate withdrawal. 1. Acute Opiate Withdrawal: Admitted to [place], routine labs including CBC, CMP, urine for drug screen obtained in the ED, initiated and continue on protocol with tapering course of Subutex, as needed tylenol, ibuprofen, bowel regimen, gabapentin, Bentyl, Vistaril, methocarbamol, clonidine, PRN nightly trazodone for insomnia, IV fluids, IV antiemetics. Once patient clinically improved and completion of taper nearing will plan consultation with case management for transition to next level of rehabilitation care. 08/05/23 improved appearance, withdrawal symptoms improving. 08/06/2023 patient reports resolution of withdrawal symptoms and per discussion with case management with also [facility] involvement plan discharge today. 2. Chest discomfort with atypical examination, rhonchorous left side, possibly atelectasis related: Chest x-ray obtained with no acute findings with hyperinflation, respiratory viral panel negative, negative, sputum culture requested but at this time no obvious infectious etiology w/ CBC with WBC 5.3 without marked shift and afebrile, procalcitonin <0.04. Encouraged aggressive I-S and will continue to closely monitor. 08/05/23 discomfort resolved, improved deep breathing. 08/06/2023 pulmonary exam normalized, no pleuritic discomfort reported. 3. Polysubstance Abuse: Given polysubstance use, will to be cautious obtained HIV, hepatitis panel, RPR which were all nonreactive. 4. Tobacco Abuse: Encouraged cessation, inpatient consultation per RT, NR if desired. 5. DVT prophylaxis: Low risk for type of admission. Charges/Coding Visit Charges Inpatient E&M: 13365 Subs Hosp L2
[2023-08-06 07:02] VITALS: O2SAT 96
--- NOTE | 2023-08-06 09:40 | ADDICTION ---
clinician met with client to finalize discharge plan. he was given walk in clinic times/days for [facility] in [facility]. client was open and cooperative. client reported that he will follow up with this agency for continuation of tx; individual counseling to address co-occurring nature of his addiction.
--- NOTE | 2023-08-06 10:38 | DCINST_ITS ---
Discharge Instructions Diet Discharge Diet: No restrictions Activity Discharge Activity: Return to Normal Activity Dressing / Incision Call your doctor if you observe: Numbness or Tingling, Change in Color, Inability to urinate, Shortness of breath, Dizziness, Swelling in the ankles, Chest pain, Calf discomfort and Uncontrolled pain Follow Up Care Test Results: Test results from this visit will be discussed in further detail at your follow- up appointment, if applicable. Discharge Plan Admission Admit Date/Time: 08/03/23 15:54 Primary Reason for Your Visit: Opiate abuse w/ withdrawal, Polysubstance abuse, Tobacco use Attending Provider: Julita Wilcox Primary Care Provider: Care Physician,No Primary Consulting Providers: Francoise Carcamo Instructions Patient Instructions: ED Cocaine And Crack Abuse, ED Opiate Abuse Additional Instructions / Restrictions: DISCHARGE ADDITIONAL: Please continue to follow-up outpatient with [facility] and other programs you are involved in. If you have any concerns about relapse or opiate abuse immediately contact your program. Discharge Orders/Prescriptions Prescriptions: No Action NK Referrals / Follow Up: Care Physician,No Primary [Primary Care Provider] - (Please establish with primary care and follow-up with first visit available.) Disposition Disposition (needs filled in before D/C Order can be placed): Home, Self Care
--- NOTE | 2023-08-06 10:39 | DS.PCM_ITS ---
Providers Date of Admission: 08/03/23 Date of Discharge: 08/06/23 Primary Care Physician: No Primary Care Phys Reason For Visit: DETOX Diagnosis Discharge Diagnosis (1) Opiate abuse, continuous: Status: Acute Code(s): F11.10 - Opioid abuse, uncomplicated Plan: DISCHARGE DIAGNOSES: 1. Acute Opiate Withdrawal with Opiate abuse 2. Chest discomfort with atypical examination, rhonchorous left side, suspected atelectasis related 3. Polysubstance Abuse (HIV, hepatitis panel, RPR all nonreactive) 4. Tobacco Abuse Medications at Discharge Home Medications NK 08/03/23 Hospital Course Operations None Procedures None Summary of Care Provided Minutes Spent on Discharge: 35 Hospital Course: The patient is a 43 y/o M w/ PMHx: Tobacco use, Polysubstance abuse (Cocaine, Opiates) who presented to the [facility] ED on 08/03/23 w/ noted acute opiate withdrawal. Admitted to [place], routine labs including CBC, CMP, urine for drug screen obtained in the ED, initiated and continue on protocol with tapering course of Subutex, as needed tylenol, ibuprofen, bowel regimen, gabapentin, Bentyl, Vistaril, methocarbamol, clonidine, PRN nightly trazodone for insomnia, IV fluids, IV antiemetics. Once patient clinically improved and completion of taper case management and 180 assisted with next level of rehabilitation care. During admission patient with L sided chest discomfort with atypical examination, rhonchorous left side with Chest x-ray obtained with no acute findings with hyperinflation, respiratory viral panel negative, negative, repeat CBC with WBC 5.3 without marked shift and afebrile, procalcitonin <0.04. Encouraged aggressive I-S and this completely resolved. Given polysubstance use, will to be cautious obtained HIV, hepatitis panel, RPR which were all nonreactive. Patient discharged in stable improved condition. 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 Weight / BMI Weight Weight: 190 lb 9 oz Body Mass Index (BMI) 26.6 ABG / Lab / Microbiology Data 08/04/23 05:27 08/04/23 05:27 Microbiology: Microbiology 08/04/23 13:10 Sputum, Expectorated/Coughed Gram Stain - Final 08/04/23 13:10 Sputum, Expectorated/Coughed Respiratory Culture - Preliminary Staphylococcus aureus 08/04/23 11:22 Mucosa - Nose Respiratory Panel (PCR) - Final 08/04/23 13:30 Urine, Clean Catch Legionella Antigen - Final 08/04/23 13:30 Urine, Clean Catch Streptococcus pneumoniae Antigen (M - Final D/C Instructions Discharge Diet: No restrictions Call your doctor if you observe: Numbness or Tingling, Change in Color, Inability to urinate, Shortness of breath, Dizziness, Swelling in the ankles, Chest pain, Calf discomfort and Uncontrolled pain Meaningful Use Info Meaningful Use Diagnoses (Choose all that apply): None applicable Discharge Plan Admission Admit Date/Time: 08/03/23 15:54 Primary Reason for Your Visit: Opiate abuse w/ withdrawal, Polysubstance abuse, Tobacco use Attending Provider: Julita Wilcox Primary Care Provider: Care Physician,No Primary Consulting Providers: Francoise Carcamo Instructions Patient Instructions: ED Cocaine And Crack Abuse, ED Opiate Abuse Additional Instructions / Restrictions: DISCHARGE ADDITIONAL: Please continue to follow-up outpatient with [facility] and other programs you are involved in. If you have any concerns about relapse or opiate abuse immediately contact your program. Discharge Orders/Prescriptions Prescriptions: No Action NK Referrals / Follow Up: Care Physician,No Primary [Primary Care Provider] - (Please establish with primary care and follow-up with first visit available.) Disposition Disposition (needs filled in before D/C Order can be placed): Home, Self Care Charges/Coding Visit Charges Inpatient E&M: 87551 Disch Hosp >30min
[2023-08-06 11:00] VITALS: BP 133/91; PULSE 94; RESP 16; TEMP 37.2; O2SAT 99
--- OUTSIDE RECORDS SUMMARY | 2023-08-11 09:08 | XMS RPT_ITS | CCD ---
Author Name Unknown Address [address] [place] [address] Organization [facility] Care Team Providers Care Transformer Molder Name Role Phone Derrick Bloom Attending Unavailable [...] Body height 177.8 cm No Pcp Required [facility] 08-31-2021 19:27-0500 Body temperature 98.06 [degF] No Pcp Required [facility] 08-31-2021 19:27-0500 Diastolic blood pressure 84 mm[Hg] No Pcp Required [facility] 08-31-2021 19:27-0500 Heart rate 92 /min No Pcp Required [facility] 08-31-2021 19:27-0500 Respiratory rate 16 /min No Pcp Required [facility] 08-31-2021 19:27-0500 SaO2% (BldA) [Mass fraction] 98 % No Pcp Required [facility] 08-31-2021 19:27-0500 Systolic blood pressure 129 mm[Hg] No Pcp Required [facility] 01-08-2021 14:45-0400 Body height 180.3 cm No Pcp Required [facility] 01-08-2021 14:45-0400 Body temperature 97.88 [degF] No Pcp Required [facility] 01-08-2021 14:45-0400 Diastolic blood pressure 84 mm[Hg] No Pcp Required [facility] 01-08-2021 14:45-0400 Heart rate 74 /min No Pcp Required [facility] 01-08-2021 14:45-0400 Respiratory rate 14 /min No Pcp Required [facility] 01-08-2021 14:45-0400 SaO2% (BldA) [Mass fraction] 98 % No Pcp Required [facility] 01-08-2021 14:45-0400 Systolic blood pressure 135 mm[Hg] No Pcp Required [facility] 02-16-2020 12:30-0400 Body Temperature 98.1 [degF] [facility] 02-16-2020 12:30-0400 BP Diastolic 83 mm[Hg] [facility] 02-16-2020 12:30-0400 BP Systolic 132 mm[Hg] [facility] 02-16-2020 12:30-0400 Pulse (Heart Rate) 69 /min [facility] 02-16-2020 12:30-0400 Pulse Oximetry 96 % Ayden Buck [facility] 02-16-2020 12:30-0400 Respiratory Rate 16 /min Ayden Buck [facility] 02-15-2020 04:42-0400 Respiratory rate 0 /min Aydenantonio Buck [facility] 02-15-2020 03:21-0400 BMI (Body Mass Index) 26.72 kg/m2 Ayden Buck [facility] 02-15-2020 03:21-0400 Body weight 89.36 kg Ayden Buck [facility] 02-15-2020 03:21-0400 Height 182.9 cm Ayden Buck [facility] 05-15-2019 17:21-0500 BP Diastolic 92 mm[Hg] [facility] 05-15-2019 17:21-0500 BP Systolic 159 mm[Hg] [facility] 05-15-2019 17:21-0500 Pulse (Heart Rate) 73 /min [facility] 05-15-2019 17:21-0500 Pulse Oximetry 100 % [facility] 05-15-2019 17:21-0500 Respiratory Rate 16 /min [facility] 05-15-2019 15:11-0500 BMI (Body Mass Index) 24.41 kg/m2 [facility] 05-15-2019 15:11-0500 Body Temperature 98.71 [degF] [facility] 05-15-2019 15:11-05[address] [facility] 05-15-2019 15:11-[address] [facility] Encounters Encounter Date Encounter Type Care Provider Facility Start: 08-31-2021 End: 08-31-2021 Emergency department patient visit Екатерина Hathaway [facility] 05 Start: 01-08-2021 End: 01-08-2021 Emergency department patient visit Cleve Connerdrine [facility] 04 Start: 02-18-2020 End: 02-22-2020 Patient encounter procedure PHYSICIAN NO [facility] Start: 02-15-2020 End: 02-16-2020 Patient encounter procedure PHYSICIAN NO [facility] Start: 02-15-2020 End: 02-16-2020 Emergency department patient visit Ayden Buck Work Phone: [facility] Cardiovascular Step Down Procedures Date Procedure [...] Phone: Start: 02-15-2020 COVID-19, MOLECULAR Babak kirk Bukc Work Phone: Start: 02-15-2020 Drugs of abuse [...] 02-15-2020 LIGHT BLUE TOP Ayden Sh awn Cielo Work Phone: Start: 02-15-2020 LIGHT GREEN TOP Ayden S mack [place] Work Phone: Start: 02-15-2020 RAINBOW DRAW Ayden Martinez n [place] Work Phone: Start: 02-15-2020 Acetaminophen [Mass/ volume] in Serum or Plasma Ayden Chivo [place] Work Phone: Start: 02-15-2020 Complete blood count with white cell differential, automated Ayden Chivo [place] Work Phone: Start: 02-15-2020 Complete blood count with white cell differential, manual Ayden Chivo [place] Work Phone: Start: 02-15-2020 Comprehensive metabo lic 2000 panel - Serum or Plasma Ayden Chivo [place] Work Phone: Start: 02-15-2020 Ethanol [Mass/volume ] in Serum or Plasma Ayden Chivo [place] Work Phone: Start: 02-15-2020 Troponin measurement Mi cah Chivo [place] Work Phone: Start: 02-15-2020 OBTAIN ARTERIAL BLOO [...] Influenza vaccination given Sequential Influenza Vaccine (#1) [facility] Start: 02-25-2020 End: 02-25-2020 Office Visit 02/25/2020 [facility] [address] [place] [address] [phone] [facility] Start: 02-28-2019 Influenza vaccination INFLUENZA VACCINE (#1) [facility] Start: 1999 Third diphtheria, tetanus and acellular pertussis (DTaP) vaccination TDAP (ADULT) [facility] Start: 1998 Hepatitis C antibody, confirmatory test Hepatitis C Screening [facility] Start: [address] [facility] Start: 1995 HIV screening HIV Screening [facility] Start: 1993 HIV screening HIV SCREENING DISCUSSION [facility] Start: 1983 History and physical examination, annual for health maintenance Wellness Visit [facility] Start: 1980 Tetanus vaccination Tetanus: Every 10yrs [facility] Buprenorphine Ql (U) Buprenorphi ne Screen, Urine Lab Routine 02/15/2020 7:55 PM EDT [facility] Fentanyl, Urine Fentanyl, Urine Lab Routine 02/15/2020 7:56 PM EDT [facility] Troponin measurement Troponin On ce Lab Timed 02/15/2020 9:04 AM EDT [facility] Payers Date Payer Category Payer Unknown [employer] [place] [facility] OR OTHER [employer] [place] [facility] OR OTHER xxxxxxxxx 2019-Present xxxxxxxxx [id number] 2019 Medicaid [employer] [facility] ED MEDICAID [employer] [id number] 2019-Present [id number] 1980 Unknown [id number] 1980 Unknown [id number] 1980 Unknown [id number] 1959 Unknown [id number] Self-pay [id number] Unknown Social History Date Type Detail Facility Start: 05-15-2019 End: 02-15-2020 Tobacco smoking status NHIS Current every day smoker [facility] History of tobacco use Cigarette Smoker A [facility] Start: 05-15-2019 Cigarettes smoked current (pack per day) - Reported [facility] Start: 05-15-2019 End: 02-15-2020 Alcohol intake Current drinker of alcohol (finding) [facility] Start: 11-04-2016 Alcohol Comment socially [facility] Sex Assigned At Not on file [facility] Start: 02-15-2020 Tobacco use and exposure Never used [facility] Exposure to SARS-CoV -2 (event) Not sure [facility] Tobacco smoking consumption unknown [facility] Summary Purpose Family History No Family History Records FoundNo Family History Records FoundNo Family History Records FoundNo Family History Records FoundNo Family History Records Found Advance Directives No Advanced Directives Records FoundDocuments on File Type Date Recorded Patient Clinic Md Associate Expl anation Advance Directives and Livin g Will 02/15/2020 3:24 AM Latest Code Status on File Code Status Date Activated Date Inactivated Comments Full Code 02/15/2020 8:12 AM 02/16/2020 2:59 PM Discharge Instructions * Attachments The following attachments cannot be sent through Care Everywhere. * Abdominal Pain ([place] Island[place]) documented in this encounter* Discharge Instr - Care Coordination* Alondra Estrella RN - 02/15/2020 7:32 AM EDT [facility] Trust the experts at [facility] to meet your healthcare needs. When you make an appointment with [facility], it's the start of a long-lasting partnership that's committed to your health. We provide the very best prevention, wellness and illness care, and give you access to the advancedmedical services and expert treatment available at [facility]. Please note that the providers listed below are accepting new patients. [place]: [address], [address] [place] [address] MD Mae Lopez MD [address] [place] [address] MD Cherelle Bah, ICE SKATER [address] [place] [address] MD Debbi Puente, ANGEL [place], [place] [address] MD Harriett Mason, ICE SKATER [address] [place], [place] [phone] Sangeeta Stallworth MD For the most up-to-date information on a care provider in your community, use the Find a Doctor tool on [employer]. * Additional Instructions* Antoine Aguilar RN - [...] or absorbed through the skin. Drugs include sked-cac-cigvzxa medicine (such as aspirin or acetaminophen) and prescription medicine. They also include vitamins and supplements. And they include illegal drugs such as cocaine and heroin. And poisons are all around us. They include household hospital aide, cosmetics, houseplants, and garden chemicals. The doctor [...] mix cleaning products. Try to use nontoxic hospital aide. These include vinegar, lemon juice, andbaking soda. When should you call for help? Poison control centers, hospitals, or your doctor can give immediate advice in the case of a poisoning. [facility] National Poison Control Hotline phone number is . Have the poison container with you so you can give complete information to the poison control center, such as what the poison or substance is, how much was taken and when. Do not try to make the person vomit. Ckho244 anytime you think you may need emergency [...] Log into your personal health record on [email or web address] and enter A385 in the Education box to learn more about Alcohol, Drug, or Poison Ingestion: Care Instructions. Current as of: December 23, 2018 Content Version: 12. [employer]. Care instructions adapted under license by your healthcare professional. If you have questions about a medical condition or this instruction, always ask your healthcare professional. [employer] disclaims any warranty or liability for your use of this information. * Attachments The following attachments cannot be sent through Care Everywhere. * Heroin Use and Withdrawal: General Info ([place]) documented in this encounter Assessments Diagnosis Epigastric pain- Primary Abdominal pain, epigastric Diagnosis Accidental drug overdose, initial encounter- Primary Altered mental status Polysubstance abuse (HCC) Other, mixed, or unspecified nondependent drug abuse, unspecified Essential hypertension Unspecified essential hypertension Hospital Course * Debra Olivier MD - 02/16/2020 11:39 AM EDT HOSPITALIST DISCHARGE SUMMARY Patient: Ron Thompson Account: [id number] Admitted: 02/15/2020 Discharge Date/Time: 02/16/2020 Clinical Summary FINAL DIAGNOSIS: Active Problems: Altered mental status Accidental drug overdose Polysubstance abuse (HCC) Essential hypertension REASON FOR HOSPITALIZATION AND ADMITTING DIAGNOSIS: Drug Overdose Accidental drug overdose, initial encounter [T50.080Y] HOSPITAL COURSE: Ron Thompson is a 39 [...] Physician(s) Family: Physician No, Phone: None, Address: [facility] Follow Up: Duy Charles MD [address] [place], [place] [id number] Patient instructions, including activity, were given to [...] DATE CREATED AUTHOR AUTHOR'S ORGANIZ ATION 02/24/2019 [facility] DATE CREATED AUTHOR AUTHOR'S ORGANIZ ATION 05/18/2019 [facility] sp[facility] DATE CREATED AUTHOR AUTHOR'S ORGANIZ ATION 02/22/2020 [facility] DATE CREATED AUTHOR AUTHOR'S ORGANIZ ATION 09/05/2021 [facility] Reason for Visit (unrecogniz ed section and content) Reason Comments Drug Overdose Status Reason Specialty Diagnoses / Procedures Referre d By Contact Referred To Contact Diagnoses Accidental drug overdose, initial encounter Yajaira Emery CNP - 02/15/2020 10:00 AM EDT H&P Notes (unrecognized sect ion and content) [facility] Medicine Inpatient H&P 02/15/2020 Yajaira Emery CNP [facility] Patient: Ron Thompson Date of : [...] was interested in the patient getting into [facility] today by 1399. Met with the patient and he indicated that he has an appointment on the at 8 am. The patient insists he can not go to [facility] today and he was not willing to sign a release for this worker to call them. Called and updated Dr. Charles to above. Updated Dr. Olivier to above. [facility] ADDICTION MEDICINE CONSULT NOTE Patient Name: Ron Thompson Admit Date: MR #: [id number] : 1980 Physicians: Physician No (Family); No ref. provider found (referring) Hospitalist group Active Problems: Altered mental status Accidental drug overdose Polysubstance abuse (HCC) Essential hypertension Assessment and Plan: 1. Opiate Addiction -patient states that he mainly has been using heroin since 2 to 3 weeks after he got out of a detox at [facility]. He states that he did not have any groups or follow-up or medications and has no family physician. He is interested in going into detox inpatient as he feels that the only way that he can get help and be able to be support for his 16-year-old daughter and his mother. He states he is only done snorting. We will have the vp digital marketing social media and crm Amanda do an intake with [facility] ([phone]) for the Withdrawal Management Unit ([phone]) as a goal If inpatient does not [...] morning. His 16-year-old daughter works at a [employer] shop and had come home and he [...] previous inpatient detox in November 2018 at [facility] but never had any follow-up after that [...] file Gets together: Not on file Attends hoahaoism service: Not on file Active member of club or organization: Not on file Attends meetings of clubs or organizations: Not on file Relationship status: Not on file Other Topics Concern Not on file Social History Narrative Not on file AOD History: Opioids nasal 3 daily last used 2AM Patient had [facility] inpatient with 3 days of detox in [...] Chloride 109 (H) 98 - 108 mmol/L [id number] 8.4 mm Hg Urine Drug Screen Collection [...] View Preliminary Result No acute cardiopulmonary disease. [facility] Workstation ID: [id number] documented in this encounter [...] AND RESP 25 ABGS BEING DONE AT [facility] Special isolation precautions are in place with signage outside this patient's room. This urgent care physician assistant performs hand hygiene and enters the patient room wearing: ? gloves ? an appropriately fitting (N-95, PAPR, Aura) mask ? face shield ? protective gown to provide care. See documentation for the care provided. XRAY AT [facility] PT REMOVED ALL TUBING AGAIN THIS TIME INCLUDING IV THIS TIME AND WILL GET NEW SITE WITH LABS AND ABGS END TIDAL 36 AND OXYGEN AT 99% WITH RESP 16 WHEN HE LAYS STILL AND DOES NOT REMOVE MONITORING TUBING HE CONTINUES TO HOLD HIS BREATH AND TIMES AND THEN BREATHES IRREGULARLY THIS RN HAS TO BE AT [facility] SINCE PT IS PULLING AT LINES AND [...] SAME THING BUT EVENTUALLY HE DOES ANSWER [facility] ED Physician Note: NAME: Ron Thompson 39 y.o. CSN: [id number] PCP: Physician No History: Chief Complaint: Heroin [...] file Gets together: Not on file Attends hoahaoism service: Not on file Active member of [...] Procedure Abnormality Status --------- ------ CBC Auto Differential[[id number]] Abnormal Final result Please view results for these tests on the individual orders. TROPONIN XR Chest 1 View Preliminary Result No acute cardiopulmonary disease. [facility] Workstation ID: [id number] ED Course / Medical Decision Making: MDM Clinical Impression: 1. Accidental drug overdose, initial encounter Disposition: Patient is being hospitalize to observation unit (CDU) Ayden Buck M.D. [facility] Emergency Department Ayden Buck MD 02/15/20 0654 [...] BE BASED ON THE PRIMARY CLINICAL RECORDS. [employer] provides no warranty or guarantee of the accuracy or completeness of information in this document.
--- OUTSIDE RECORDS SUMMARY | 2023-08-25 23:07 | XMS RPT_ITS | CCD ---
Author Name Unknown Address [address] [place] [address] Organization [facility] Care Team Providers Care Civil Engineering Intern Name Role Phone Derrick Bloom Attending Unavailable [...] Body height 177.8 cm No Pcp Required [facility] 08-31-2021 19:27-0500 Body temperature 98.06 [degF] No Pcp Required [facility] 08-31-2021 19:27-0500 Diastolic blood pressure 84 mm[Hg] No Pcp Required [facility] 08-31-2021 19:27-0500 Heart rate 92 /min No Pcp Required [facility] 08-31-2021 19:27-0500 Respiratory rate 16 /min No Pcp Required [facility] 08-31-2021 19:27-0500 SaO2% (BldA) [Mass fraction] 98 % No Pcp Required [facility] 08-31-2021 19:27-0500 Systolic blood pressure 129 mm[Hg] No Pcp Required [facility] 01-08-2021 14:45-0400 Body height 180.3 cm No Pcp Required [facility] 01-08-2021 14:45-0400 Body temperature 97.88 [degF] No Pcp Required [facility] 01-08-2021 14:45-0400 Diastolic blood pressure 84 mm[Hg] No Pcp Required [facility] 01-08-2021 14:45-0400 Heart rate 74 /min No Pcp Required [facility] 01-08-2021 14:45-0400 Respiratory rate 14 /min No Pcp Required [facility] 01-08-2021 14:45-0400 SaO2% (BldA) [Mass fraction] 98 % No Pcp Required [facility] 01-08-2021 14:45-0400 Systolic blood pressure 135 mm[Hg] No Pcp Required [facility] 02-16-2020 12:30-0400 Body Temperature 98.1 [degF] [facility] 02-16-2020 12:30-0400 BP Diastolic 83 mm[Hg] [facility] 02-16-2020 12:30-0400 BP Systolic 132 mm[Hg] [facility] 02-16-2020 12:30-0400 Pulse (Heart Rate) 69 /min [facility] 02-16-2020 12:30-0400 Pulse Oximetry 96 % Ayden Buck [facility] 02-16-2020 12:30-0400 Respiratory Rate 16 /min Ayden Buck [facility] 02-15-2020 04:42-0400 Respiratory rate 0 /min Aydenantonio Buck [facility] 02-15-2020 03:21-0400 BMI (Body Mass Index) 26.72 kg/m2 Ayden Buck [facility] 02-15-2020 03:21-0400 Body weight 89.36 kg Ayden Buck [facility] 02-15-2020 03:21-0400 Height 182.9 cm Ayden Buck [facility] 05-15-2019 17:21-0500 BP Diastolic 92 mm[Hg] [facility] [employer] 05-15-2019 17:21-0500 BP Systolic 159 mm[Hg] [facility] 05-15-2019 17:21-0500 Pulse (Heart Rate) 73 /min [facility] [employer] 05-15-2019 17:21-0500 Pulse Oximetry 100 % [facility] [employer] 05-15-2019 17:21-0500 Respiratory Rate 16 /min [facility] 05-15-2019 15:11-0500 BMI (Body Mass Index) 24.41 kg/m2 [facility] 05-15-2019 15:11-0500 Body Temperature 98.71 [degF] [facility] [employer] 05-15-2019 15:11-0500 Body weight 81.65 kg [facility] 05-15-2019 15:11-0500 Height 182.9 cm [facility] Encounters Encounter Date Encounter Type Care Provider Facility Start: 08-31-2021 End: 08-31-2021 Emergency department patient visit Екатерина Hathaway [facility] 05 Start: 01-08-2021 End: 01-08-2021 Emergency department patient visit Cleve Connerdrine [facility] 04 Start: 02-18-2020 End: 02-22-2020 Patient encounter procedure PHYSICIAN NO [facility] Start: 02-15-2020 End: 02-16-2020 Patient encounter procedure PHYSICIAN NO [facility] Start: 02-15-2020 End: 02-16-2020 Emergency department patient visit Ayden Buck Work Phone: [facility] Cardiovascular Step Down Procedures Date Procedure Procedure [...] 02-15-2020 LIGHT GREEN TOP Ayden S mack [place] Work Phone: Start: 02-15-2020 RAINBOW DRAW Ayden Martinez n [place] Work Phone: Start: 02-15-2020 Acetaminophen [Mass/ volume] in Serum or Plasma Ayden Chivo [place] Work Phone: Start: 02-15-2020 Complete blood count with white cell differential, automated Ayden Chivo [place] Work Phone: Start: 02-15-2020 Complete blood count with white cell differential, manual Ayden Chivo [place] Work Phone: Start: 02-15-2020 Comprehensive metabo lic 2000 panel - Serum or Plasma Ayden Chivo [place] Work Phone: Start: 02-15-2020 Ethanol [Mass/volume ] in Serum or Plasma Ayden Chivo [place] Work Phone: Start: 02-15-2020 Troponin measurement Mi cah Chivo [place] Work Phone: Start: 02-15-2020 OBTAIN ARTERIAL BLOO [...] Influenza vaccination given Sequential Influenza Vaccine (#1) [facility] Start: 02-25-2020 End: 02-25-2020 Office Visit 02/25/2020 [facility] [address] [place] [address] [phone] [facility] Start: 02-28-2019 Influenza vaccination INFLUENZA VACCINE (#1) [facility] Start: 1999 Third diphtheria, tetanus and acellular pertussis (DTaP) vaccination TDAP (ADULT) [facility] Start: 1998 Hepatitis C antibody, confirmatory test Hepatitis C Screening [facility] Start: 1998 Tetanus vaccination TETANUS [facility] Start: 1995 HIV screening HIV Screening [facility] Start: 1993 HIV screening HIV SCREENING DISCUSSION [facility] Start: 1983 History and physical examination, annual for health maintenance Wellness Visit [facility] Start: 1980 Tetanus vaccination Tetanus: Every 10yrs [facility] Buprenorphine Ql (U) Buprenorphi ne Screen, Urine Lab Routine 02/15/2020 7:55 PM EDT [facility] Fentanyl, Urine Fentanyl, Urine Lab Routine 02/15/2020 7:56 PM EDT [facility] Troponin measurement Troponin On ce Lab Timed 02/15/2020 9:04 AM EDT [facility] Payers Date Payer Category Payer Unknown [place] [facility] OR OTHER [place] OR ON LICENSE OF [facility] OR OTHER xxxxxxxxx 2019-Present xxxxxxxxx [id number] 2019 Medicaid [facility] ED MEDICAID [employer] [id number] 2019-Present [id number] 1980 Unknown [id number] 1980 Unknown [id number] 1980 Unknown [id number] 1959 Unknown [id number] Self-pay [id number] Unknown Social History Date Type Detail Facility Start: 05-15-2019 End: 02-15-2020 Tobacco smoking status NHIS Current every day smoker [facility] History of tobacco use Cigarette Smoker A [facility] Start: 05-15-2019 Cigarettes smoked current (pack per day) - Reported [facility] Start: 05-15-2019 End: 02-15-2020 Alcohol intake Current drinker of alcohol (finding) [facility] Start: 11-04-2016 Alcohol Comment socially [facility] Sex Assigned At Not on file [facility] Start: 02-15-2020 Tobacco use and exposure Never used [facility] Exposure to SARS-CoV -2 (event) Not sure [facility] Tobacco smoking consumption unknown [facility] Summary Purpose Family History No Family History Records FoundNo Family History Records FoundNo Family History Records FoundNo Family History Records FoundNo Family History Records Found Advance Directives No Advanced Directives Records FoundDocuments on File Type Date Recorded Patient Patternmaker All Around Expl anation Advance Directives and Livin g Will 02/15/2020 3:24 AM Latest Code Status on File Code Status Date Activated Date Inactivated Comments Full Code 02/15/2020 8:12 AM 02/16/2020 2:59 PM Discharge Instructions * Attachments The following attachments cannot be sent through Care Everywhere. * Abdominal Pain (Samoan) documented in this encounter* Discharge Instr - Care Coordination* Alondra Estrella RN - 02/15/2020 7:32 AM EDT [facility] Primary Care Trust the experts at [facility] to meet your healthcare needs. When you make an appointment with [facility] Physicians, it's the start of a long-lasting partnership that's committed to your health. We provide the very best prevention, wellness and illness care, and give you access to the advancedmedical services and expert treatment available at [facility]. Please note that the providers listed below are accepting new patients. [place]: [address], [address] [place] [address] MD Mae Lopez MD [address] [place] [address] MD Cherelle Bah, CORN PRESS OPERATOR [address] [place] [address] MD Debbi Puente, ANGEL [place], [place] [address] MD Harriett Mason, CORN PRESS OPERATOR [address], [place] [phone] Sangeeta Stallworth MD For the most up-to-date information on a care provider in your community, use the Find a Doctor tool on Mobile Experience. * Additional Instructions* Antoine Aguilar RN - [...] or absorbed through the skin. Drugs include mumz-ddt-vmqcjgf medicine (such as aspirin or acetaminophen) and prescription medicine. They also include vitamins and supplements. And they include illegal drugs such as cocaine and heroin. And poisons are all around us. They include household assistant professor of biochemistry, cosmetics, houseplants, and garden chemicals. The doctor [...] mix cleaning products. Try to use nontoxic assistant professor of biochemistry. These include vinegar, lemon juice, andbaking soda. When should you call for help? Poison control centers, hospitals, or your doctor can give immediate advice in the case of a poisoning. The [facility] National Poison Control Hotline phone number is . Have the poison container with you so you can give complete information to the poison control center, such as what the poison or substance is, how much was taken and when. Do not try to make the person vomit. Fjbh299 anytime you think you may need emergency [...] Log into your personal health record on [email or web address] and enter A385 in the Education box to learn more about Alcohol, Drug, or Poison Ingestion: Care Instructions. Current as of: December 23, 2018 Content Version: 12. Authorly. Care instructions adapted under license by your healthcare professional. If you have questions about a medical condition or this instruction, always ask your healthcare professional. Author[employer] disclaims any warranty or liability for your use of this information. * Attachments The following attachments cannot be sent through Care Everywhere. * Heroin Use and Withdrawal: General Info (Samoan) documented in this encounter Assessments Diagnosis Epigastric pain- Primary Abdominal pain, epigastric Diagnosis Accidental drug overdose, initial encounter- Primary Altered mental status Polysubstance abuse (HCC) Other, mixed, or unspecified nondependent drug abuse, unspecified Essential hypertension Unspecified essential hypertension Hospital Course * Debra Olivier MD - 02/16/2020 11:39 AM EDT HOSPITALIST DISCHARGE SUMMARY Patient: Ron Thompson Account: [id number] Admitted: 02/15/2020 Discharge Date/Time: 02/16/2020 Clinical Summary FINAL DIAGNOSIS: Active Problems: Altered mental status Accidental drug overdose Polysubstance abuse (HCC) Essential hypertension REASON FOR HOSPITALIZATION AND ADMITTING DIAGNOSIS: Drug Overdose Accidental drug overdose, initial encounter [T50.223Q] HOSPITAL COURSE: Ron Thompson is a 39 [...] Physician(s) Family: Physician No, Phone: None, Address: [facility] Follow Up: Duy Charles MD [address] [place], [place] [id number] Patient instructions, including activity, were given to [...] DATE CREATED AUTHOR AUTHOR'S ORGANIZ ATION 02/24/2019 [facility] DATE CREATED AUTHOR AUTHOR'S ORGANIZ ATION 05/18/2019 [facility] DATE CREATED AUTHOR AUTHOR'S ORGANIZ ATION 02/22/2020 [facility] DATE CREATED AUTHOR AUTHOR'S ORGANIZ ATION 09/05/2021 [facility] Reason for Visit (unrecogniz ed section and content) Reason Comments Drug Overdose Status Reason Specialty Diagnoses / Procedures Referre d By Contact Referred To Contact Diagnoses Accidental drug overdose, initial encounter Yajaira Emery CNP - 02/15/2020 10:00 AM EDT H&P Notes (unrecognized sect ion and content) [facility] Medicine Inpatient H&P 02/15/2020 Yajaira Emery CNP [facility] Patient: Ron Thompson Date of : 1980 [...] was interested in the patient getting into [facility] today by 1399. Met with the patient and he indicated that he has an appointment on the at 8 am. The patient insists he can not go to [facility] today and he was not willing to sign a release for this worker to call them. Called and updated Dr. Charles to above. Updated Dr. Olivier to above. [facility] ADDICTION MEDICINE CONSULT NOTE Patient Name: Ron Thompson Admit Date: MR #: [id number] : 1980 Physicians: Physician No (Family); No ref. provider found (referring) Hospitalist group Active Problems: Altered mental status Accidental drug overdose Polysubstance abuse (HCC) Essential hypertension Assessment and Plan: 1. Opiate Addiction -patient states that he mainly has been using heroin since 2 to 3 weeks after he got out of a detox at [facility]. He states that he did not have any groups or follow-up or medications and has no family physician. He is interested in going into detox inpatient as he feels that the only way that he can get help and be able to be support for his 16-year-old daughter and his mother. He states he is only done snorting. We will have the addiction social worker Amanda do an intake with [facility] ([phone]) for the Withdrawal Management Unit ([phone]) as a goal If inpatient does not [...] morning. His 16-year-old daughter works at a [employer] shop and had come home and he [...] previous inpatient detox in November 2018 at [facility] but never had any follow-up after that [...] file Gets together: Not on file Attends anabaptism service: Not on file Active member of club or organization: Not on file Attends meetings of clubs or organizations: Not on file Relationship status: Not on file Other Topics Concern Not on file Social History Narrative Not on file AOD History: Opioids nasal 3 daily last used 2AM Patient had [facility] inpatient with 3 days of detox in [...] Chloride 109 (H) 98 - 108 mmol/L [id number] 8.4 mm Hg Urine Drug Screen Collection [...] View Preliminary Result No acute cardiopulmonary disease. DeporvillageV/Ahonya Workstation ID: [id number] documented in this encounter [...] AND RESP 25 ABGS BEING DONE AT [facility] Special isolation precautions are in place with signage outside this patient's room. This critical care nurse specialist performs hand hygiene and enters the patient room wearing: ? gloves ? an appropriately fitting (N-95, PAPR, Aura) mask ? face shield ? protective gown to provide care. See documentation for the care provided. XRAY AT [facility] PT REMOVED ALL TUBING AGAIN THIS TIME INCLUDING IV THIS TIME AND WILL GET NEW SITE WITH LABS AND ABGS END TIDAL 36 AND OXYGEN AT 99% WITH RESP 16 WHEN HE LAYS STILL AND DOES NOT REMOVE MONITORING TUBING HE CONTINUES TO HOLD HIS BREATH AND TIMES AND THEN BREATHES IRREGULARLY THIS RN HAS TO BE AT [facility] SINCE PT IS PULLING AT LINES [...] SAME THING BUT EVENTUALLY HE DOES ANSWER [facility] ED Physician Note: NAME: Ron Thompson 39 y.o. CSN: [id number] PCP: Physician No History: Chief Complaint: Heroin [...] file Gets together: Not on file Attends anabaptism service: Not on file Active member of [...] Procedure Abnormality Status --------- ------ CBC Auto Differential[[id number]] Abnormal Final result Please view results for these tests on the individual orders. TROPONIN XR Chest 1 View Preliminary Result No acute cardiopulmonary disease. StayTuned/Ahonya Workstation ID: [id number] ED Course / Medical Decision Making: MDM Clinical Impression: 1. Accidental drug overdose, initial encounter Disposition: Patient is being hospitalize to observation unit (CDU) Ayden Buck M.D. [facility] Emergency Department Ayden Buck MD [...] BE BASED ON THE PRIMARY CLINICAL RECORDS. ki work. provides no warranty or guarantee of the accuracy or completeness of information in this document.
== END 2023-08-06 15:37 | disposition home or self-care (01) ==
LOC: ED 14:45 → MS3 08-04 06:38
PROVIDERS: Physician Assistant; Admitting Provider Internal Medicine; Emergency Provider Emergency Medicine; Visit Provider Family Medicine
DX: F11.23 Opioid dependence with withdrawal (principal); E43 Unspecified severe protein-calorie malnutrition; F14.23 Cocaine dependence with withdrawal; F17.210 Nicotine dependence, cigarettes, uncomplicated; R07.89 Other chest pain; G47.00 Insomnia, unspecified; Z68.26 Body mass index [BMI] 26.0-26.9, adult
CPT/HCPCS: 36415; 71046; 80053; 80307; 80320; 84145; 85025; 86703; 86706; 86780; 86803; 87070; 87077; 87186; 87205; 87340; 87449; 87633; 97802; 99284; H0012; G0480